=== PATIENT | male | born 1950 | race Caucasian/White ===

== ENCOUNTER 2016-07-03 17:44 | Inpatient (IN) | payer MEDICARE, OTHER ==
--- NOTE | 2016-07-03 18:33 | ED Physician Chart ---
Chief Complaint/HPI - Patient Information Date Seen:: 07/03/16 Time Seen:: 18:20 Chief Complaint:: aggressive behavior History of Present Illness:: verbally abusive to staff at SNF Allergies:: Allergies Allergy/AdvReac Type Severity Reaction Status Date / Time No Known Allergies Allergy Verified 02/27/16 19:27 Historian:: Patient Review:: Nurse's Note Reviewed, Transfer documents Reviewed Review of Systems - Review of Systems General/Constitutional: No fever, No chills Skin: No skin lesions Head: No headache Eyes: No loss of vision ENT: No earache Neck: No neck pain Cardio Vascular: No chest pain Pulmonary: No SOB GI: No nausea, No vomiting G/U: No dysuria Musculoskeletal: No bone or joint pain, No back pain Psychiatric: Prior psych history Hematopoietic: No bruising Allergic/Immuno: No urticaria Neurological: No syncope, No focal symptoms Past Medical History - Past Medical History Past Medical History: PUD/GERD, Other (bipolar; cirrhosis) Family History: None Social History: Non Smoker, No Alcohol, Other (formerly drank alcohol) Surgical History: None Psychiatricy History: Bipolar Medication: Reviewed Family Medical History - Family Member Mother History Unknown: Yes Ethnicity: Unknown Living Status: Unknown Hx Family Cancer: No Hx Family Coronary Artery Disease: No Hx Family Congestive Heart Failure: No Hx Family Hypertension: No Hx Family Stroke: No Hx Family Diabetes: No Hx Family Seizures: No Hx Family Dementia: No Hx Family AIDS: No Hx Family HIV: No Hx Family COPD: No Hx Family Hepatitis: No Hx Family Psychiatric Problems: No Hx Family Tuberculosis: No Physical Exam - Physical Examination General/Constitutional: Well-developed, well-nourished, Alert, No distress Other Gen/Cons comments:: states date is June 2015 Head: Atraumatic Eyes: Lids, conjuctiva normal, PERRL Skin: Nl inspection, No rash ENMT: External ears, nose nl Other ENMT comments:: few teeth present; has peridontal disease Neck: No nuchal rigidity Respiratory: Nl effort/Exclusion Other Respiratory comments:: 2.5/4 mid and basilar rales Cardio Vascular: RRR Other Cardio Vascular comments:: 5/6 systolic murmur GI: No tenderness/rebounding/guarding : No CVA tenderness Extremities: No tenderness or effusion Neuro/Psych: Alert/oriented, No focal deficits Misc: Normal back Labs/Radiology/EKG Results - Lab Results Results: Laboratory Results - last 24 hr 07/03/16 07/03/16 07/03/16 19:11 19:11 19:11 WBC 4.8 RBC 4.01 Hgb 12.8 Hct 37.0 L MCV 92.2 MCH 31.8 H MCHC Differential 34.5 RDW 14.7 Plt Count 94 L D MPV 8.4 Band Neutrophils % 1 Neutrophils (Manual) 51 Lymphocytes 21 Monocytes 24 H Eosinophils 3 Platelet Estimate DECREASED PLATELETS Platelet Morphology NORMAL RBC Morph Micro Appear NORMAL Sodium 135 L Potassium 3.9 Chloride 107 Carbon Dioxide 25.4 Anion Gap 6.5 L BUN 20 Creatinine 0.8 Est GFR ( Amer) > 60.0 Est GFR (Non-Af Amer) > 60.0 BUN/Creatinine Ratio 25.0 Glucose 73 Calcium 9.2 Total Bilirubin 1.0 AST 47 H ALT 37 Alkaline Phosphatase 111 H Total Protein 6.3 Albumin 2.8 L Globulin 3.5 Albumin/Globulin Ratio 0.8 L TSH 2.40 - EKG Interpretations Rhythm: NSR Acra: normal Rate: 75 Comments:: Q waves II, aVF and V1-V3 ED Septic Shock - . Is Septic Shock (SBP<90, OR Lactate>4 mmol\L) present?: No Reassessment (Disposition) - Reassessment Reassessment Condition:: Unchanged - Diagnosis Diagnosis:: bipolar; aggressive behavior; 5/6 systolic murmur - Patient Disposition Admitted to:: [facility] Admitting Medical Physician:: Андрей Villagran Admitting Psych Physician:: Samy Minor Condition at Disposition:: Stable
[2016-07-03 19:32] LABS: ALB/GLOB RATIO 0.8 (1.0-1.8); ALKALINE PHOSPHATASE 111 U/L (34-104); ANION GAP 6.5 (7.0-16.0); BUN - UREA NITROGEN 20 mg/dL (7-25); CALCIUM SERUM 9.2 mg/dL (8.6-10.3); CARBON DIOXIDE 25.4 mEq/L (21.0-31.0); CHLORIDE 107 mEq/L (98-107); CREATININE - SERUM 0.8 mg/dL (0.7-1.3); GLUCOSE 73 mg/dL (70-105); MEAN CORPUSCULAR HGB CONC 34.5 pg (28.0-36.0); POTASSIUM SERUM 3.9 mEq/L (3.5-5.1); SGOT 47 U/L (13-39); SGPT/ALT 37 U/L (7-52); SODIUM SERUM 135 mEq/L (136-145); WHITE BLOOD COUNT 4.8 Th/cmm (4.8-10.8)
[2016-07-03 19:37] LABS: HEMOGLOBIN 12.8 gm/dL (12.6-17.4); MEAN CELL VOLUME 92.2 fl (80-99); MEAN CORPUSCULAR HEMOGLOBIN 31.8 pg (27.0-31.0); MEAN PLATELET VOLUME 8.4 fl; RED BLOOD COUNT 4.01 Mil/cmm (3.80-5.80); RED CELL DISTRIBUTION WIDTH 14.7 % (11.5-20.0)
[2016-07-03 19:38] LABS: PLATELET COUNT 94 Th/cmm (150-400)
[2016-07-03 20:03] LABS: BAND NEUTROPHILE 1 % (0-10); EOSINOPHIL 3 % (0-5); NEUTROPHILS 51 % (40-80); PLATELET ESTIMATE DECREASED PLATELETS (NORMAL); PLATELET MORPHOLOGY NORMAL (NORMAL); TOTAL CELLS COUNTED 100
[2016-07-03] MEDS ORDERED: Maalox 30 mL Cup PO PRN (20:58)
[2016-07-03] MEDS ORDERED: Magnesium Hydroxide (MOM) 30 mL UDC PO PRN ×2 (20:58→21:09)
[2016-07-03] MEDS ORDERED: Hydrocodone/APAP 5mg/325mg Tab PO PRN ×3 (21:09→23:21)
[2016-07-03 21:16] VITALS: BP 142/76
[2016-07-04] MEDS: Multivitamin w/ Minerals Tab PO SCH (09:37)
--- NOTE | 2016-07-04 11:13 | Diagnostic Imaging Report ---
Portable chest x-ray HISTORY: Heart murmur The overall heart size is difficult to assess with portable technique and a poor inspiration. No acute focal pulmonary processes. No hilar or mediastinal abnormalities. IMPRESSION: 1. No acute pulmonary processes
--- NOTE | 2016-07-04 12:01 | General Progress Note ---
Subjective - Review of Systems Service Date: 07/04/16 Subjective: Let me alone Objective - Results Result Diagrams: 07/03/16 19:11 07/03/16 19:11 Recent Labs: Laboratory Last Values WBC 4.8 Th/cmm (4.8-10.8) 07/03/16 19:11 RBC 4.01 Mil/cmm (3.80-5.80) 07/03/16 19:11 Hgb 12.8 gm/dL (12.6-17.4) 07/03/16 19:11 Hct 37.0 % (39.0-49.0) L 07/03/16 19:11 MCV 92.2 fl (80-99) 07/03/16 19:11 MCH 31.8 pg (27.0-31.0) H 07/03/16 19:11 MCHC Differential 34.5 pg (28.0-36.0) 07/03/16 19:11 RDW 14.7 % (11.5-20.0) 07/03/16 19:11 Plt Count 94 Th/cmm (150-400) L D 07/03/16 19:11 MPV 8.4 fl 07/03/16 19:11 Band Neutrophils % 1 % (0-10) 07/03/16 19:11 Neutrophils (Manual) 51 % (40-80) 07/03/16 19:11 Lymphocytes 21 % (20-50) 07/03/16 19:11 Monocytes 24 % (2-10) H 07/03/16 19:11 Eosinophils 3 % (0-5) 07/03/16 19:11 Platelet Estimate DECREASED PLATELETS (NORMAL) 07/03/16 19:11 Platelet Morphology NORMAL (NORMAL) 07/03/16 19:11 RBC Morph Micro Appear NORMAL (NORMAL) 07/03/16 19:11 Sodium 135 mEq/L (136-145) L 07/03/16 19:11 Potassium 3.9 mEq/L (3.5-5.1) 07/03/16 19:11 Chloride 107 mEq/L (98-107) 07/03/16 19:11 Carbon Dioxide 25.4 mEq/L (21.0-31.0) 07/03/16 19:11 Anion Gap 6.5 (7.0-16.0) L 07/03/16 19:11 BUN 20 mg/dL (7-25) 07/03/16 19:11 Creatinine 0.8 mg/dL (0.7-1.3) 07/03/16 19:11 Est GFR ( Amer) > 60.0 ml/min 07/03/16 19:11 Est GFR (Non-Af Amer) > 60.0 ml/min 07/03/16 19:11 BUN/Creatinine Ratio 25.0 07/03/16 19:11 Glucose 73 mg/dL (70-105) 07/03/16 19:11 Calcium 9.2 mg/dL (8.6-10.3) 07/03/16 19:11 Total Bilirubin 1.0 mg/dL (0.3-1.0) 07/03/16 19:11 AST 47 U/L (13-39) H 07/03/16 19:11 ALT 37 U/L (7-52) 07/03/16 19:11 Alkaline Phosphatase 111 U/L (34-104) H 07/03/16 19:11 Total Protein 6.3 gm/dL (6.0-8.3) 07/03/16 19:11 Albumin 2.8 gm/dL (4.2-5.5) L 07/03/16 19:11 Globulin 3.5 gm/dL 07/03/16 19:11 Albumin/Globulin Ratio 0.8 (1.0-1.8) L 07/03/16 19:11 TSH 2.40 uIU/ml (0.34-5.60) 07/03/16 19:11 RPR NONREACTIVE (NONREACTIVE) 07/03/16 19:11 - Physical Exam Vitals and I&O: Vital Signs Temp 98.3 F 07/03/16 20:37 Pulse 71 07/03/16 20:37 Resp 19 07/03/16 20:37 BP 142/76 07/03/16 20:57 Pulse Ox 96 07/03/16 20:37 Active Medications: Current Medications Acetaminophen (Tylenol) 650 mg PO Q4HR PRN PRN Reason: Pain (Mild) Stop: 09/01/16 20:57 Acetaminophen/Hydrocodone Bitart ([place] 5mg/325mg) 1 tab PO Q6H PRN PRN Reason: Pain (Severe) Stop: 09/01/16 21:08 Al Hydrox/Mg Hydrox/Simethicone (Maalox) 30 ml PO Q4HR PRN PRN Reason: GI DISTRESS Stop: 09/01/16 20:57 Ascorbic Acid (Vitamin C) 500 mg PO DAILY [facility] Stop: 09/02/16 08:59 Last Admin: 07/04/16 09:36 Dose: Not Given Famotidine (Pepcid) 20 mg PO DAILY [facility] Stop: 09/02/16 08:59 Last Admin: 07/04/16 09:37 Dose: Not Given Folic Acid (Folate) 1 mg PO DAILY [facility] Stop: 09/02/16 08:59 Last Admin: 07/04/16 09:37 Dose: Not Given Ibuprofen (Motrin) 800 mg PO Q8HR PRN PRN Reason: Pain (Moderate) Stop: 09/01/16 21:08 Lactulose (Cephulac) gm PO TID [facility] Stop: 09/02/16 08:59 Lorazepam (Ativan) 0.5 mg PO Q4HR PRN; Protocol PRN Reason: Anxiety Stop: 08/02/16 20:57 Pregabalin (Lyrica) 25 mg PO BID [facility] Stop: 09/02/16 08:59 Last Admin: 07/04/16 09:37 Dose: Not Given Spironolactone (Aldactone) 100 mg PO DAILY [facility] Stop: 09/02/16 08:59 Last Admin: 07/04/16 09:40 Dose: Not Given Thiamine HCl (Vitamin B1) 100 mg PO DAILY [facility] Stop: 09/02/16 08:59 Last Admin: 07/04/16 09:36 Dose: 100 mg Zolpidem Tartrate (Ambien) 5 mg PO HS PRN PRN Reason: Insomnia Stop: 09/01/16 20:57 General: Alert, Other (Confused) HEENT: Atraumatic Neck: Supple Cardiovascular: Regular rate Lungs: Clear to auscultation Abdomen: Bowel sounds, Soft Extremities: Other (No edema) Neurological: Other (Unstable gait) Skin: Other (Warm and dry) Psych/Mental Status: Other (Confused) Assessment/Plan - Problem List Patient Problems: All Active Problems Hypertension (Acute) I10 Psychosis (Acute) F29 - Assessment Assessment: Patient is confused, in no acute distress. - Plan Plan: Ammonia level requested, will continue monitoring.
--- NOTE | 2016-07-04 13:32 | History & Physical ---
CHIEF COMPLAINT: Increase in agitation. HISTORY OF PRESENT ILLNESS: This is a case of 65-year-old white male who was sent by jail secondary to increase in agitation. The patient has history of multiple hospitalizations secondary to his mental disease. PAST MEDICAL HISTORY: The patient has past medical history of aplastic encephalopathy, liver cirrhosis, bipolar, GERD, hypertension, general muscle weakness and major depressive disorder. SOCIAL HISTORY: The patient is a permanent resident of a jail. FAMILY HISTORY: Unremarkable. MEDICATIONS: Reviewed. ALLERGIES: No known allergies. REVIEW OF SYSTEMS: Information was not obtained secondary to the patient's mental condition. PHYSICAL EXAMINATION: GENERAL: Does reveal a fairly nourished and developed white male, awake, alert, confused, not oriented. HEENT: Head is normocephalic and atraumatic. Eyes: Pupils reactive to light. Nose: No evidence of nasal obstruction. Ears: No evidence of any discharge. Mouth: Fairly ____. LUNGS: Bilateral air entry. No wheezing, no crackles. HEART: Regular and rhythmic. ABDOMEN: Soft, nontender, bowel sound present. EXTREMITIES: No edema. NEUROLOGICAL: The patient is awake, alert, confused, not oriented. Neurological examination was not completed secondary to the patient's mental condition. IMPRESSION: 1. Increase in agitation. 2. Bipolar. 3. Liver cirrhosis. 4. Hypertension. 5. General muscle weakness. PLAN: 1. The patient will be admitted in the Geropsych Unit. 2. The patient will be following with Psychiatry. 3. Continue jail medications. 4. CBC and CMP at a.m. [facility]# [id number]
[2016-07-04] MEDS: Lactulose 10 Gm/15 mL 30mL UDC PO SCH ×2 (14:38→20:35)
--- NOTE | 2016-07-05 08:01 | Psychosocial Evaluation ---
IDENTIFYING DATA: The patient is a 65-year-old male resident of [facility] in [place]. Information obtained by interviewing the patient as well as reviewing the admission papers. JUSTIFICATION OF HOSPITALIZATION: The patient is admitted here on a voluntary basis in view of his acute agitation. CHIEF COMPLAINT: "I don't need to tell. Go and ask the people that sent me in here. " HISTORY OF PRESENT ILLNESS: This is one of multiple psychiatric hospitalizations for this patient who is known to us from the previous psychiatric hospitalization and treatments. The patient is reported to have been getting verbally aggressive and has been having difficult time to cope with the stress. The patient has been anxious and then having lot of angry outburst. The patient has been sent over here for further stabilization. Chart is reviewed. The patient is interviewed. During the interview, the patient is not cooperative and has been getting easily frustrated. Review of the chart indicated that the patient has been on Lyrica prior to being hospitalized and patient's compliance with the medication is questionable. The patient is stating that he does not need any medications. PAST PSYCHIATRIC HISTORY: Please refer to the above. PAST MEDICAL HISTORY: The patient ____. PAST PSYCHIATRIC HISTORY: Significant for patient having bipolar disorder. MEDICAL HISTORY: Physical examination is requested and done by Dr. Villagran. Medical history significant for essential hypertension, history of cerebral aneurysm unruptured and the patient is also noted to have anemia. MENTAL STATUS EXAMINATION: The patient is a 65-year-old, looking older than his stated age, superficially cooperative. Eye contact is poor. Mood is noted to be irritable. Affect is constricted. Insight and judgment are very much impaired. Impulse control seems to be poor. Coping skills are also noted to be poor. The patient has been getting easily irritable and upset. The patient is screaming and yelling, verbally abusive towards the staff. The patient at this time has been maintained on Ativan on a p.r.n. basis. Even then patient is getting easily frustrated. The patient has paranoia, but denies any command hallucinations, mood swings are noted to be a problem. The patient is angry and upset. The patient's short term memory is noted to be poor. [facility] memory seems to be fair. DIAGNOSTIC IMPRESSION: AXIS I: Bipolar disorder, not otherwise specified. AXIS II: None. AXIS III: As per Dr. Villagran. IMMEDIATE TREATMENT PLAN: The patient is going to be observed on inpatient unit, provided with supportive psychotherapy. The patient is going to be encouraged to participate in the groups and verbalize the concerns. When stabilized, the patient is going to be discharged to self to be followed up on an outpatient basis. ESTIMATED LENGTH OF STAY: 5-7 days. DISCHARGE CRITERIA: When he no longer a threat to self or others and be able to cope up with the stress. JOB# [id number]
[2016-07-05] MEDS: Multivitamin w/ Minerals Tab PO SCH (09:08)
[2016-07-05] MEDS: Lactulose 10 Gm/15 mL 30mL UDC PO SCH ×3 (09:08→20:48)
--- NOTE | 2016-07-05 17:13 | General Progress Note ---
Subjective - Review of Systems Service Date: 07/05/16 Subjective: Let me alone Objective - Results Result Diagrams: 07/03/16 19:11 07/03/16 19:11 Recent Labs: Laboratory Last Values WBC 4.8 Th/cmm (4.8-10.8) 07/03/16 19:11 RBC 4.01 Mil/cmm (3.80-5.80) 07/03/16 19:11 Hgb 12.8 gm/dL (12.6-17.4) 07/03/16 19:11 Hct 37.0 % (39.0-49.0) L 07/03/16 19:11 MCV 92.2 fl (80-99) 07/03/16 19:11 MCH 31.8 pg (27.0-31.0) H 07/03/16 19:11 MCHC Differential 34.5 pg (28.0-36.0) 07/03/16 19:11 RDW 14.7 % (11.5-20.0) 07/03/16 19:11 Plt Count 94 Th/cmm (150-400) L D 07/03/16 19:11 MPV 8.4 fl 07/03/16 19:11 Band Neutrophils % 1 % (0-10) 07/03/16 19:11 Neutrophils (Manual) 51 % (40-80) 07/03/16 19:11 Lymphocytes 21 % (20-50) 07/03/16 19:11 Monocytes 24 % (2-10) H 07/03/16 19:11 Eosinophils 3 % (0-5) 07/03/16 19:11 Platelet Estimate DECREASED PLATELETS (NORMAL) 07/03/16 19:11 Platelet Morphology NORMAL (NORMAL) 07/03/16 19:11 RBC Morph Micro Appear NORMAL (NORMAL) 07/03/16 19:11 Sodium 135 mEq/L (136-145) L 07/03/16 19:11 Potassium 3.9 mEq/L (3.5-5.1) 07/03/16 19:11 Chloride 107 mEq/L (98-107) 07/03/16 19:11 Carbon Dioxide 25.4 mEq/L (21.0-31.0) 07/03/16 19:11 Anion Gap 6.5 (7.0-16.0) L 07/03/16 19:11 BUN 20 mg/dL (7-25) 07/03/16 19:11 Creatinine 0.8 mg/dL (0.7-1.3) 07/03/16 19:11 Est GFR ( Amer) > 60.0 ml/min 07/03/16 19:11 Est GFR (Non-Af Amer) > 60.0 ml/min 07/03/16 19:11 BUN/Creatinine Ratio 25.0 07/03/16 19:11 Glucose 73 mg/dL (70-105) 07/03/16 19:11 Calcium 9.2 mg/dL (8.6-10.3) 07/03/16 19:11 Total Bilirubin 1.0 mg/dL (0.3-1.0) 07/03/16 19:11 AST 47 U/L (13-39) H 07/03/16 19:11 ALT 37 U/L (7-52) 07/03/16 19:11 Alkaline Phosphatase 111 U/L (34-104) H 07/03/16 19:11 Total Protein 6.3 gm/dL (6.0-8.3) 07/03/16 19:11 Albumin 2.8 gm/dL (4.2-5.5) L 07/03/16 19:11 Globulin 3.5 gm/dL 07/03/16 19:11 Albumin/Globulin Ratio 0.8 (1.0-1.8) L 07/03/16 19:11 TSH 2.40 uIU/ml (0.34-5.60) 07/03/16 19:11 RPR NONREACTIVE (NONREACTIVE) 07/03/16 19:11 - Physical Exam Vitals and I&O: Vital Signs Temp 98.3 F 07/03/16 20:37 Pulse 71 07/03/16 20:37 Resp 19 07/03/16 20:37 BP 142/76 07/03/16 20:57 Pulse Ox 96 07/03/16 20:37 Intake & Output 07/04/16 07/05/16 07/05/16 18:59 06:59 18:59 Intake Total 1000 Balance 1000 Intake: Oral 1000 Other: # Voids 3 2 # Bowel Movements 1 Active Medications: Current Medications Acetaminophen (Tylenol) 650 mg PO Q4HR PRN PRN Reason: Pain (Mild) Stop: 09/01/16 20:57 Acetaminophen/Hydrocodone Bitart ([place] 5mg/325mg) 1 tab PO Q6H PRN PRN Reason: Pain (Severe) Stop: 09/01/16 21:08 Al Hydrox/Mg Hydrox/Simethicone (Maalox) 30 ml PO Q4HR PRN PRN Reason: GI DISTRESS Stop: 09/01/16 20:57 Ascorbic Acid (Vitamin C) 500 mg PO DAILY [facility] Stop: 09/02/16 08:59 Last Admin: 07/05/16 09:08 Dose: Not Given Famotidine (Pepcid) 20 mg PO DAILY [facility] Stop: 09/02/16 08:59 Last Admin: 07/05/16 09:08 Dose: Not Given Folic Acid (Folate) 1 mg PO DAILY [facility] Stop: 09/02/16 08:59 Last Admin: 07/05/16 09:08 Dose: Not Given Ibuprofen (Motrin) 800 mg PO Q8HR PRN PRN Reason: Pain (Moderate) Stop: 09/01/16 21:08 Lactulose (Cephulac) 20 gm PO TID [facility] Stop: 09/02/16 08:59 Last Admin: 07/05/16 13:50 Dose: Not Given Lorazepam (Ativan) 0.5 mg PO Q4HR PRN; Protocol PRN Reason: Anxiety Stop: 08/02/16 20:57 Pregabalin (Lyrica) 25 mg PO BID [facility] Stop: 09/02/16 08:59 Last Admin: 07/05/16 16:44 Dose: Not Given Spironolactone (Aldactone) 100 mg PO DAILY [facility] Stop: 09/02/16 08:59 Last Admin: 07/05/16 09:08 Dose: Not Given Thiamine HCl (Vitamin B1) 100 mg PO DAILY [facility] Stop: 09/02/16 08:59 Last Admin: 07/05/16 09:08 Dose: Not Given Zolpidem Tartrate (Ambien) 5 mg PO HS PRN PRN Reason: Insomnia Stop: 09/01/16 20:57 General: Alert, Other (Confused) HEENT: Atraumatic Neck: Supple Cardiovascular: Regular rate Lungs: Clear to auscultation Abdomen: Bowel sounds, Soft Extremities: Other (No edema) Neurological: Normal gait Skin: Other (Warm and dry) Psych/Mental Status: Other (Confused) Assessment/Plan - Problem List Patient Problems: All Active Problems Hypertension (Acute) I10 Psychosis (Acute) F29 - Assessment Assessment: Patient is confused, in no acute distress. - Plan Plan: Ammonia level requested, will continue monitoring.
--- NOTE | 2016-07-06 03:15 | Progress Notes ---
PSYCHIATRIC PROGRESS NOTE TIME PATIENT SEEN: 10:30 a.m. SUBJECTIVE: Staff was spoken to. The patient is interviewed. Mood is noted to be irritable. Affect is constricted. The patient continues to be irritable and angry. Insight and judgment are noted to be very much impaired. The patient is getting easily agitated. The patient has no insight into his illness. Coping skills are noted to be very poor. The patient has been stating that everything is written over there, he does not need to tell me anything. The reason for him to be in here, the patient has no insight into his illness. ASSESSMENT: The patient is still getting easily agitated. PLAN: To continue the patient with the current medications. I encouraged the patient to verbalize the concerns rather than to act out. JOB# [id number]
[2016-07-06] MEDS: Multivitamin w/ Minerals Tab PO SCH (09:38)
[2016-07-06] MEDS: Lactulose 10 Gm/15 mL 30mL UDC PO SCH ×3 (09:38→21:15)
--- NOTE | 2016-07-06 11:36 | General Progress Note ---
Subjective - Review of Systems Service Date: 07/06/16 Subjective: Let me alone Objective - Results Result Diagrams: 07/03/16 19:11 07/03/16 19:11 Recent Labs: Laboratory Last Values WBC 4.8 Th/cmm (4.8-10.8) 07/03/16 19:11 RBC 4.01 Mil/cmm (3.80-5.80) 07/03/16 19:11 Hgb 12.8 gm/dL (12.6-17.4) 07/03/16 19:11 Hct 37.0 % (39.0-49.0) L 07/03/16 19:11 MCV 92.2 fl (80-99) 07/03/16 19:11 MCH 31.8 pg (27.0-31.0) H 07/03/16 19:11 MCHC Differential 34.5 pg (28.0-36.0) 07/03/16 19:11 RDW 14.7 % (11.5-20.0) 07/03/16 19:11 Plt Count 94 Th/cmm (150-400) L D 07/03/16 19:11 MPV 8.4 fl 07/03/16 19:11 Band Neutrophils % 1 % (0-10) 07/03/16 19:11 Neutrophils (Manual) 51 % (40-80) 07/03/16 19:11 Lymphocytes 21 % (20-50) 07/03/16 19:11 Monocytes 24 % (2-10) H 07/03/16 19:11 Eosinophils 3 % (0-5) 07/03/16 19:11 Platelet Estimate DECREASED PLATELETS (NORMAL) 07/03/16 19:11 Platelet Morphology NORMAL (NORMAL) 07/03/16 19:11 RBC Morph Micro Appear NORMAL (NORMAL) 07/03/16 19:11 Sodium 135 mEq/L (136-145) L 07/03/16 19:11 Potassium 3.9 mEq/L (3.5-5.1) 07/03/16 19:11 Chloride 107 mEq/L (98-107) 07/03/16 19:11 Carbon Dioxide 25.4 mEq/L (21.0-31.0) 07/03/16 19:11 Anion Gap 6.5 (7.0-16.0) L 07/03/16 19:11 BUN 20 mg/dL (7-25) 07/03/16 19:11 Creatinine 0.8 mg/dL (0.7-1.3) 07/03/16 19:11 Est GFR ( Amer) > 60.0 ml/min 07/03/16 19:11 Est GFR (Non-Af Amer) > 60.0 ml/min 07/03/16 19:11 BUN/Creatinine Ratio 25.0 07/03/16 19:11 Glucose 73 mg/dL (70-105) 07/03/16 19:11 Calcium 9.2 mg/dL (8.6-10.3) 07/03/16 19:11 Total Bilirubin 1.0 mg/dL (0.3-1.0) 07/03/16 19:11 AST 47 U/L (13-39) H 07/03/16 19:11 ALT 37 U/L (7-52) 07/03/16 19:11 Alkaline Phosphatase 111 U/L (34-104) H 07/03/16 19:11 Total Protein 6.3 gm/dL (6.0-8.3) 07/03/16 19:11 Albumin 2.8 gm/dL (4.2-5.5) L 07/03/16 19:11 Globulin 3.5 gm/dL 07/03/16 19:11 Albumin/Globulin Ratio 0.8 (1.0-1.8) L 07/03/16 19:11 TSH 2.40 uIU/ml (0.34-5.60) 07/03/16 19:11 RPR NONREACTIVE (NONREACTIVE) 07/03/16 19:11 - Physical Exam Vitals and I&O: Vital Signs Temp 98 F 07/06/16 06:57 Pulse 79 07/06/16 09:38 Resp 20 07/06/16 06:57 BP 123/78 07/06/16 09:38 Pulse Ox 96 07/06/16 06:57 Intake & Output 07/05/16 07/06/16 07/06/16 18:59 06:59 18:59 Intake Total 800 240 Balance 800 240 Intake: Oral 800 240 Other: # Voids 2 4 # Bowel Movements 1 0 Stool Characteristics Soft Formed Active Medications: Current Medications Acetaminophen (Tylenol) 650 mg PO Q4HR PRN PRN Reason: Pain (Mild) Stop: 09/01/16 20:57 Acetaminophen/Hydrocodone Bitart ([place] 5mg/325mg) 1 tab PO Q6H PRN PRN Reason: Pain (Severe) Stop: 09/01/16 21:08 Al Hydrox/Mg Hydrox/Simethicone (Maalox) 30 ml PO Q4HR PRN PRN Reason: GI DISTRESS Stop: 09/01/16 20:57 Ascorbic Acid (Vitamin C) 500 mg PO DAILY [facility] Stop: 09/02/16 08:59 Last Admin: 07/06/16 09:38 Dose: Not Given Famotidine (Pepcid) 20 mg PO DAILY [facility] Stop: 09/02/16 08:59 Last Admin: 07/06/16 09:38 Dose: Not Given Folic Acid (Folate) 1 mg PO DAILY [facility] Stop: 09/02/16 08:59 Last Admin: 07/06/16 09:38 Dose: Not Given Haloperidol (Haldol) 1 mg PO BID PRN; Protocol PRN Reason: Agitation Stop: 09/04/16 16:59 Ibuprofen (Motrin) 800 mg PO Q8HR PRN PRN Reason: Pain (Moderate) Stop: 09/01/16 21:08 Lactulose (Cephulac) 20 gm PO TID [facility] Stop: 09/02/16 08:59 Last Admin: 07/06/16 09:38 Dose: Not Given Lorazepam (Ativan) 0.5 mg PO Q4HR PRN; Protocol PRN Reason: Anxiety Stop: 08/02/16 20:57 Pregabalin (Lyrica) 25 mg PO BID [facility] Stop: 09/02/16 08:59 Last Admin: 07/06/16 09:38 Dose: Not Given Spironolactone (Aldactone) 100 mg PO DAILY [facility] Stop: 09/02/16 08:59 Last Admin: 07/06/16 09:38 Dose: Not Given Thiamine HCl (Vitamin B1) 100 mg PO DAILY [facility] Stop: 09/02/16 08:59 Last Admin: 07/06/16 09:39 Dose: Not Given Zolpidem Tartrate (Ambien) 5 mg PO HS PRN PRN Reason: Insomnia Stop: 09/01/16 20:57 General: Alert, Other (Confused) HEENT: Atraumatic Neck: Supple Cardiovascular: Regular rate Lungs: Clear to auscultation Abdomen: Bowel sounds, Soft Extremities: Other (No edema) Neurological: Other (Unstable gait) Skin: Other (Warm and dry) Psych/Mental Status: Other (Confused) Assessment/Plan - Problem List Patient Problems: All Active Problems Hypertension (Acute) I10 Psychosis (Acute) F29 - Assessment Assessment: Patient is confused, in no acute distress. - Plan Plan: Ammonia level requested, will continue monitoring.
--- NOTE | 2016-07-06 23:52 | Progress Notes ---
TIME PATIENT SEEN: 10:15 a.m. SUBJECTIVE: Staff was spoken to. The patient is interviewed. Mood is noted to be irritable. Affect is constricted. Insight and judgment are noted to be impaired. Impulse control seems the patient is verbally abusive towards the staff members. The patient has no insight into his illness. Coping skills are noted to be extremely poor. The patient is going to be placed on the Haldol 1 mg b.i.d. on a p.r.n. basis and the patient is going to be encouraged to participate in the groups and verbalize the concerns. The patient has no insight into his illness at this time. ASSESSMENT: The patient is still psychotic and impulsive. PLAN: To continue the patient with the supportive therapy and encourage the patient to verbalize the concerns rather than to act out. Haldol is going to be given for agitation and psychosis. Assessment is the patient is still impulsive and agitated. Plan to continue the patient with the supportive therapy and add Haldol to the above regimen of the Ativan and follow the patient up. JOB# [id number]
[2016-07-07] MEDS: Multivitamin w/ Minerals Tab PO SCH (10:12)
[2016-07-07] MEDS: Lactulose 10 Gm/15 mL 30mL UDC PO SCH ×4 (10:16→20:42)
--- NOTE | 2016-07-07 12:26 | General Progress Note ---
Subjective - Review of Systems Service Date: 07/07/16 Subjective: Let me alone Objective - Results Result Diagrams: 07/03/16 19:11 07/03/16 19:11 Recent Labs: Laboratory Last Values WBC 4.8 Th/cmm (4.8-10.8) 07/03/16 19:11 RBC 4.01 Mil/cmm (3.80-5.80) 07/03/16 19:11 Hgb 12.8 gm/dL (12.6-17.4) 07/03/16 19:11 Hct 37.0 % (39.0-49.0) L 07/03/16 19:11 MCV 92.2 fl (80-99) 07/03/16 19:11 MCH 31.8 pg (27.0-31.0) H 07/03/16 19:11 MCHC Differential 34.5 pg (28.0-36.0) 07/03/16 19:11 RDW 14.7 % (11.5-20.0) 07/03/16 19:11 Plt Count 94 Th/cmm (150-400) L D 07/03/16 19:11 MPV 8.4 fl 07/03/16 19:11 Band Neutrophils % 1 % (0-10) 07/03/16 19:11 Neutrophils (Manual) 51 % (40-80) 07/03/16 19:11 Lymphocytes 21 % (20-50) 07/03/16 19:11 Monocytes 24 % (2-10) H 07/03/16 19:11 Eosinophils 3 % (0-5) 07/03/16 19:11 Platelet Estimate DECREASED PLATELETS (NORMAL) 07/03/16 19:11 Platelet Morphology NORMAL (NORMAL) 07/03/16 19:11 RBC Morph Micro Appear NORMAL (NORMAL) 07/03/16 19:11 Sodium 135 mEq/L (136-145) L 07/03/16 19:11 Potassium 3.9 mEq/L (3.5-5.1) 07/03/16 19:11 Chloride 107 mEq/L (98-107) 07/03/16 19:11 Carbon Dioxide 25.4 mEq/L (21.0-31.0) 07/03/16 19:11 Anion Gap 6.5 (7.0-16.0) L 07/03/16 19:11 BUN 20 mg/dL (7-25) 07/03/16 19:11 Creatinine 0.8 mg/dL (0.7-1.3) 07/03/16 19:11 Est GFR ( Amer) > 60.0 ml/min 07/03/16 19:11 Est GFR (Non-Af Amer) > 60.0 ml/min 07/03/16 19:11 BUN/Creatinine Ratio 25.0 07/03/16 19:11 Glucose 73 mg/dL (70-105) 07/03/16 19:11 Calcium 9.2 mg/dL (8.6-10.3) 07/03/16 19:11 Total Bilirubin 1.0 mg/dL (0.3-1.0) 07/03/16 19:11 AST 47 U/L (13-39) H 07/03/16 19:11 ALT 37 U/L (7-52) 07/03/16 19:11 Alkaline Phosphatase 111 U/L (34-104) H 07/03/16 19:11 Total Protein 6.3 gm/dL (6.0-8.3) 07/03/16 19:11 Albumin 2.8 gm/dL (4.2-5.5) L 07/03/16 19:11 Globulin 3.5 gm/dL 07/03/16 19:11 Albumin/Globulin Ratio 0.8 (1.0-1.8) L 07/03/16 19:11 TSH 2.40 uIU/ml (0.34-5.60) 07/03/16 19:11 RPR NONREACTIVE (NONREACTIVE) 07/03/16 19:11 - Physical Exam Vitals and I&O: Vital Signs Temp 0 F 07/07/16 06:47 Pulse 80 07/07/16 10:12 Resp 22 07/07/16 08:00 BP 106/78 07/07/16 10:12 Pulse Ox 98 07/06/16 20:31 Intake & Output 07/06/16 07/07/16 07/07/16 18:59 06:59 18:59 Intake Total 1200 240 Balance 1200 240 Intake: Oral 1200 240 Other: # Voids 4 3 # Bowel Movements 1 0 Stool Characteristics Soft Formed Formed Active Medications: Current Medications Acetaminophen (Tylenol) 650 mg PO Q4HR PRN PRN Reason: Pain (Mild) Stop: 09/01/16 20:57 Acetaminophen/Hydrocodone Bitart ([place] 5mg/325mg) 1 tab PO Q6H PRN PRN Reason: Pain (Severe) Stop: 09/01/16 21:08 Al Hydrox/Mg Hydrox/Simethicone (Maalox) 30 ml PO Q4HR PRN PRN Reason: GI DISTRESS Stop: 09/01/16 20:57 Ascorbic Acid (Vitamin C) 500 mg PO DAILY [facility] Stop: 09/02/16 08:59 Last Admin: 07/07/16 10:10 Dose: 500 mg Famotidine (Pepcid) 20 mg PO DAILY [facility] Stop: 09/02/16 08:59 Last Admin: 07/07/16 10:09 Dose: 20 mg Folic Acid (Folate) 1 mg PO DAILY [facility] Stop: 09/02/16 08:59 Last Admin: 07/07/16 10:10 Dose: 1 mg Haloperidol (Haldol) 1 mg PO BID PRN; Protocol PRN Reason: Agitation Stop: 09/04/16 16:59 Haloperidol (Haldol) 1 mg PO BID [facility] PRN Reason: Protocol Stop: 09/05/16 08:59 Last Admin: 07/07/16 10:11 Dose: 1 mg Ibuprofen (Motrin) 800 mg PO Q8HR PRN PRN Reason: Pain (Moderate) Stop: 09/01/16 21:08 Lactulose (Cephulac) 20 gm PO TID [facility] Stop: 09/02/16 08:59 Last Admin: 07/07/16 10:16 Dose: Not Given Lorazepam (Ativan) 0.5 mg PO Q4HR PRN; Protocol PRN Reason: Anxiety Stop: 08/02/16 20:57 Pregabalin (Lyrica) 25 mg PO BID [facility] Stop: 09/02/16 08:59 Last Admin: 07/07/16 10:10 Dose: 25 mg Spironolactone (Aldactone) 100 mg PO DAILY [facility] Stop: 09/02/16 08:59 Last Admin: 07/07/16 10:12 Dose: Not Given Thiamine HCl (Vitamin B1) 100 mg PO DAILY [facility] Stop: 09/02/16 08:59 Last Admin: 07/07/16 10:10 Dose: 100 mg Zolpidem Tartrate (Ambien) 5 mg PO HS PRN PRN Reason: Insomnia Stop: 09/01/16 20:57 General: Alert, Other (Confused) HEENT: Atraumatic Neck: Supple Cardiovascular: Regular rate Lungs: Clear to auscultation Abdomen: Bowel sounds, Soft Extremities: Other (No edema) Neurological: Other (Non ambulatory) Skin: Other (Warm and dry) Psych/Mental Status: Other (Confused) Assessment/Plan - Problem List Patient Problems: All Active Problems Hypertension (Acute) I10 Psychosis (Acute) F29 - Assessment Assessment: Patient is confused, in no acute distress. - Plan Plan: Ammonia level requested, will continue monitoring.
[2016-07-07 15:48] LABS: HEMATOCRIT 37.9 % (39.0-49.0); HEMOGLOBIN 13.1 gm/dL (12.6-17.4); MEAN CELL VOLUME 92.8 fl (80-99); MEAN CORPUSCULAR HEMOGLOBIN 32.1 pg (27.0-31.0); MEAN CORPUSCULAR HGB CONC 34.6 pg (28.0-36.0); PLATELET COUNT 81 Th/cmm (150-400); RED BLOOD COUNT 4.08 Mil/cmm (3.80-5.80); RED CELL DISTRIBUTION WIDTH 14.4 % (11.5-20.0); WHITE BLOOD COUNT 4.9 Th/cmm (4.8-10.8)
[2016-07-07 15:52] LABS: ALB/GLOB RATIO 0.8 (1.0-1.8); ALKALINE PHOSPHATASE 78 U/L (34-104); ANION GAP 5.7 (7.0-16.0); BILIRUBIN,TOTAL 1.3 mg/dL (0.3-1.0); BUN - UREA NITROGEN 18 mg/dL (7-25); BUN/CREATININE RATIO 25.7; CALCIUM SERUM 9.5 mg/dL (8.6-10.3); CARBON DIOXIDE 24.3 mEq/L (21.0-31.0); CHLORIDE 111 mEq/L (98-107); CREATININE - SERUM 0.7 mg/dL (0.7-1.3); GLUCOSE 127 mg/dL (70-105); SGOT 48 U/L (13-39); SGPT/ALT 39 U/L (7-52); SODIUM SERUM 137 mEq/L (136-145)
[2016-07-07 15:58] LABS: TOTAL CELLS COUNTED 100
[2016-07-07 16:08] LABS: BAND NEUTROPHILE 0 % (0-10); BASOPHIL 0 % (0-3); EOSINOPHIL 5 % (0-5); NEUTROPHILS 61 % (40-80); PLATELET ESTIMATE DECREASED PLATELETS (NORMAL); PLATELET MORPHOLOGY NORMAL (NORMAL)
--- NOTE | 2016-07-08 01:03 | Progress Notes ---
PSYCHIATRIC PROGRESS NOTE TIME PATIENT SEEN: 8:15 a.m. SUBJECTIVE: Staff was spoken to. The patient is interviewed. Mood is noted to be irritable. Affect is constricted. Coping skills are noted to be very poor. The patient is screaming and yelling. The patient is extremely paranoid and is not able to contract for safety. No side effects to the medications are noted at this time. ASSESSMENT: The patient is still impulsive. PLAN: To continue the patient with the current medications and add the Haldol 1 mg b.i.d. for his psychosis and agitation and aggressive behavior and follow the patient up. JOB# [id number]
[2016-07-08] MEDS: Lactulose 10 Gm/15 mL 30mL UDC PO SCH ×3 (10:29→20:47)
[2016-07-08] MEDS: Multivitamin w/ Minerals Tab PO SCH (10:32)
[2016-07-08] MEDS ORDERED: Haloperidol Lactate 5 mg/mL 1mL Vial IM ONE (16:14)
[2016-07-08] MEDS ORDERED: Haloperidol Lactate 5 mg/mL 1mL Vial ONE (16:21)
--- NOTE | 2016-07-08 22:28 | Progress Notes ---
PSYCHIATRIC PROGRESS NOTE TIME PATIENT SEEN: 7:15 a.m. SUBJECTIVE: Staff was spoken to. The patient is interviewed. Mood is noted to be irritable. Affect is constricted. The patient continues to be irritable and angry. Affect is constricted. The patient has been having difficult time to cope with the stress. The patient is argumentative. The patient has no insight into his illness. ASSESSMENT: The patient is still impulsive. PLAN: To continue the patient with Haldol and follow up. [facility]# [id number]
[2016-07-09] MEDS: Lactulose 10 Gm/15 mL 30mL UDC PO SCH ×3 (11:57→21:08)
[2016-07-09] MEDS: Multivitamin w/ Minerals Tab PO SCH (11:58)
--- NOTE | 2016-07-09 14:02 | General Progress Note ---
Subjective - Review of Systems Service Date: 07/09/16 Subjective: I want to go home Objective - Results Result Diagrams: 07/07/16 15:15 07/07/16 15:15 Recent Labs: Laboratory Last Values WBC 4.9 Th/cmm (4.8-10.8) 07/07/16 15:15 RBC 4.08 Mil/cmm (3.80-5.80) 07/07/16 15:15 Hgb 13.1 gm/dL (12.6-17.4) 07/07/16 15:15 Hct 37.9 % (39.0-49.0) L 07/07/16 15:15 MCV 92.8 fl (80-99) 07/07/16 15:15 MCH 32.1 pg (27.0-31.0) H 07/07/16 15:15 MCHC Differential 34.6 pg (28.0-36.0) 07/07/16 15:15 RDW 14.4 % (11.5-20.0) 07/07/16 15:15 Plt Count 81 Th/cmm (150-400) L 07/07/16 15:15 MPV 8.0 fl 07/07/16 15:15 Band Neutrophils % 0 % (0-10) 07/07/16 15:15 Neutrophils (Manual) 61 % (40-80) 07/07/16 15:15 Lymphocytes 24 % (20-50) 07/07/16 15:15 Monocytes 10 % (2-10) 07/07/16 15:15 Eosinophils 5 % (0-5) 07/07/16 15:15 Basophils 0 % (0-3) 07/07/16 15:15 Platelet Estimate DECREASED PLATELETS (NORMAL) 07/07/16 15:15 Platelet Morphology NORMAL (NORMAL) 07/07/16 15:15 RBC Morph Micro Appear NORMAL (NORMAL) 07/07/16 15:15 Sodium 137 mEq/L (136-145) 07/07/16 15:15 Potassium 4.0 mEq/L (3.5-5.1) 07/07/16 15:15 Chloride 111 mEq/L (98-107) H 07/07/16 15:15 Carbon Dioxide 24.3 mEq/L (21.0-31.0) 07/07/16 15:15 Anion Gap 5.7 (7.0-16.0) L 07/07/16 15:15 BUN 18 mg/dL (7-25) 07/07/16 15:15 Creatinine 0.7 mg/dL (0.7-1.3) 07/07/16 15:15 Est GFR ( Amer) > 60.0 ml/min 07/07/16 15:15 Est GFR (Non-Af Amer) > 60.0 ml/min 07/07/16 15:15 BUN/Creatinine Ratio 25.7 07/07/16 15:15 Glucose 127 mg/dL (70-105) H 07/07/16 15:15 Calcium 9.5 mg/dL (8.6-10.3) 07/07/16 15:15 Total Bilirubin 1.3 mg/dL (0.3-1.0) H 07/07/16 15:15 AST 48 U/L (13-39) H 07/07/16 15:15 ALT 39 U/L (7-52) 07/07/16 15:15 Alkaline Phosphatase 78 U/L (34-104) 07/07/16 15:15 Ammonia 209 umol/L (16-53) H 07/07/16 15:15 Total Protein 5.9 gm/dL (6.0-8.3) L 07/07/16 15:15 Albumin 2.6 gm/dL (4.2-5.5) L 07/07/16 15:15 Globulin 3.3 gm/dL 07/07/16 15:15 Albumin/Globulin Ratio 0.8 (1.0-1.8) L 07/07/16 15:15 TSH 2.40 uIU/ml (0.34-5.60) 07/03/16 19:11 RPR NONREACTIVE (NONREACTIVE) 07/03/16 19:11 - Physical Exam Vitals and I&O: Vital Signs Temp 0 F 07/09/16 06:43 Pulse 88 07/09/16 12:05 Resp 20 07/08/16 14:00 BP 100/54 07/09/16 12:05 Pulse Ox 95 07/08/16 14:00 Intake & Output 07/08/16 07/09/16 07/09/16 18:59 06:59 18:59 Intake Total 800 120 Balance 800 120 Intake: Oral 800 120 Other: # Voids 4 3 # Bowel Movements 2 0 Active Medications: Current Medications Acetaminophen (Tylenol) 650 mg PO Q4HR PRN PRN Reason: Pain (Mild) Stop: 09/01/16 20:57 Acetaminophen/Hydrocodone Bitart ([place] 5mg/325mg) 1 tab PO Q6H PRN PRN Reason: Pain (Severe) Stop: 09/01/16 21:08 Al Hydrox/Mg Hydrox/Simethicone (Maalox) 30 ml PO Q4HR PRN PRN Reason: GI DISTRESS Stop: 09/01/16 20:57 Ascorbic Acid (Vitamin C) 500 mg PO DAILY [facility] Stop: 09/02/16 08:59 Last Admin: 07/09/16 11:57 Dose: 500 mg Famotidine (Pepcid) 20 mg PO DAILY [facility] Stop: 09/02/16 08:59 Last Admin: 07/09/16 11:58 Dose: 20 mg Folic Acid (Folate) 1 mg PO DAILY [facility] Stop: 09/02/16 08:59 Last Admin: 07/09/16 11:58 Dose: 1 mg Haloperidol (Haldol) 1 mg PO BID PRN; Protocol PRN Reason: Agitation Stop: 09/04/16 16:59 Haloperidol (Haldol) 1 mg PO BID [facility] PRN Reason: Protocol Stop: 09/05/16 08:59 Last Admin: 07/09/16 11:58 Dose: 1 mg Lactulose (Cephulac) 60 gm PO TID [facility] Stop: 09/02/16 16:59 Last Admin: 07/09/16 11:57 Dose: Not Given Lorazepam (Ativan) 0.5 mg PO Q4HR PRN; Protocol PRN Reason: Anxiety Stop: 08/02/16 20:57 Last Admin: 07/09/16 12:00 Dose: 0.5 mg Rifaximin (Xifaxan) 400 mg PO BID [facility] Stop: 09/05/16 16:59 Last Admin: 07/09/16 12:03 Dose: 400 mg Spironolactone (Aldactone) 100 mg PO DAILY [facility] Stop: 09/02/16 08:59 Last Admin: 07/09/16 12:05 Dose: Not Given Thiamine HCl (Vitamin B1) 100 mg PO DAILY [facility] Stop: 09/02/16 08:59 Last Admin: 07/09/16 11:57 Dose: 100 mg Zolpidem Tartrate (Ambien) 5 mg PO HS PRN PRN Reason: Insomnia Stop: 09/01/16 20:57 General: Alert, Other (confused) HEENT: Atraumatic Neck: Supple Cardiovascular: Regular rate Lungs: Clear to auscultation Abdomen: Bowel sounds, Soft Extremities: Other (No edema) Neurological: Other (Unstable gait) Skin: Other (Warm and dry) Psych/Mental Status: Other (Confused) Assessment/Plan - Problem List Patient Problems: All Active Problems Hypertension (Acute) I10 Psychosis (Acute) F29 - Assessment Assessment: Patient is confused, in no acute distress. Last eng patient had several bowel movements. - Plan Plan: Ammonia level requested, will continue monitoring.
--- NOTE | 2016-07-10 06:29 | Progress Notes ---
TIME PATIENT SEEN: 4:45 p.m. SUBJECTIVE: Staff was spoken to. The patient is interviewed. Mood is noted to be irritable. Affect is constricted. The patient is very ____, he needs to be out of this place. The patient's coping skills are noted to be poor. The patient has no place to return to. preconstruction manager has been trying to look for placement for this patient. ASSESSMENT: The patient is still grossly psychotic. PLAN: To continue with the low dose of the Haldol and follow up. JOB# [id number]
[2016-07-10] MEDS: Lactulose 10 Gm/15 mL 30mL UDC PO SCH ×3 (09:06→20:55)
[2016-07-10] MEDS: Multivitamin w/ Minerals Tab PO SCH (09:06)
--- NOTE | 2016-07-10 12:57 | General Progress Note ---
Subjective - Review of Systems Service Date: 07/10/16 Subjective: I want to go home Objective - Results Result Diagrams: 07/07/16 15:15 07/07/16 15:15 Recent Labs: Laboratory Last Values WBC 4.9 Th/cmm (4.8-10.8) 07/07/16 15:15 RBC 4.08 Mil/cmm (3.80-5.80) 07/07/16 15:15 Hgb 13.1 gm/dL (12.6-17.4) 07/07/16 15:15 Hct 37.9 % (39.0-49.0) L 07/07/16 15:15 MCV 92.8 fl (80-99) 07/07/16 15:15 MCH 32.1 pg (27.0-31.0) H 07/07/16 15:15 MCHC Differential 34.6 pg (28.0-36.0) 07/07/16 15:15 RDW 14.4 % (11.5-20.0) 07/07/16 15:15 Plt Count 81 Th/cmm (150-400) L 07/07/16 15:15 MPV 8.0 fl 07/07/16 15:15 Band Neutrophils % 0 % (0-10) 07/07/16 15:15 Neutrophils (Manual) 61 % (40-80) 07/07/16 15:15 Lymphocytes 24 % (20-50) 07/07/16 15:15 Monocytes 10 % (2-10) 07/07/16 15:15 Eosinophils 5 % (0-5) 07/07/16 15:15 Basophils 0 % (0-3) 07/07/16 15:15 Platelet Estimate DECREASED PLATELETS (NORMAL) 07/07/16 15:15 Platelet Morphology NORMAL (NORMAL) 07/07/16 15:15 RBC Morph Micro Appear NORMAL (NORMAL) 07/07/16 15:15 Sodium 137 mEq/L (136-145) 07/07/16 15:15 Potassium 4.0 mEq/L (3.5-5.1) 07/07/16 15:15 Chloride 111 mEq/L (98-107) H 07/07/16 15:15 Carbon Dioxide 24.3 mEq/L (21.0-31.0) 07/07/16 15:15 Anion Gap 5.7 (7.0-16.0) L 07/07/16 15:15 BUN 18 mg/dL (7-25) 07/07/16 15:15 Creatinine 0.7 mg/dL (0.7-1.3) 07/07/16 15:15 Est GFR ( Amer) > 60.0 ml/min 07/07/16 15:15 Est GFR (Non-Af Amer) > 60.0 ml/min 07/07/16 15:15 BUN/Creatinine Ratio 25.7 07/07/16 15:15 Glucose 127 mg/dL (70-105) H 07/07/16 15:15 Calcium 9.5 mg/dL (8.6-10.3) 07/07/16 15:15 Total Bilirubin 1.3 mg/dL (0.3-1.0) H 07/07/16 15:15 AST 48 U/L (13-39) H 07/07/16 15:15 ALT 39 U/L (7-52) 07/07/16 15:15 Alkaline Phosphatase 78 U/L (34-104) 07/07/16 15:15 Ammonia 209 umol/L (16-53) H 07/07/16 15:15 Total Protein 5.9 gm/dL (6.0-8.3) L 07/07/16 15:15 Albumin 2.6 gm/dL (4.2-5.5) L 07/07/16 15:15 Globulin 3.3 gm/dL 07/07/16 15:15 Albumin/Globulin Ratio 0.8 (1.0-1.8) L 07/07/16 15:15 TSH 2.40 uIU/ml (0.34-5.60) 07/03/16 19:11 RPR NONREACTIVE (NONREACTIVE) 07/03/16 19:11 - Physical Exam Vitals and I&O: Vital Signs Temp 98.0 F 07/10/16 06:41 Pulse 76 07/10/16 06:41 Resp 19 07/10/16 06:41 BP 96/51 07/10/16 06:41 Pulse Ox 94 07/10/16 06:41 Intake & Output 07/09/16 07/10/16 07/10/16 18:59 06:59 18:59 Intake Total 2100 Balance 2100 Intake: Oral 2100 Other: # Voids 5 2 # Bowel Movements 1 0 Stool Characteristics Liquid Active Medications: Current Medications Acetaminophen (Tylenol) 650 mg PO Q4HR PRN PRN Reason: Pain (Mild) Stop: 09/01/16 20:57 Acetaminophen/Hydrocodone Bitart ([place] 5mg/325mg) 1 tab PO Q6H PRN PRN Reason: Pain (Severe) Stop: 09/01/16 21:08 Al Hydrox/Mg Hydrox/Simethicone (Maalox) 30 ml PO Q4HR PRN PRN Reason: GI DISTRESS Stop: 09/01/16 20:57 Ascorbic Acid (Vitamin C) 500 mg PO DAILY [facility] Stop: 09/02/16 08:59 Last Admin: 07/10/16 09:05 Dose: Not Given Famotidine (Pepcid) 20 mg PO DAILY [facility] Stop: 09/02/16 08:59 Last Admin: 07/10/16 09:05 Dose: Not Given Folic Acid (Folate) 1 mg PO DAILY [facility] Stop: 09/02/16 08:59 Last Admin: 07/10/16 09:05 Dose: Not Given Haloperidol (Haldol) 1 mg PO BID PRN; Protocol PRN Reason: Agitation Stop: 09/04/16 16:59 Last Admin: 07/09/16 17:00 Dose: 1 mg Haloperidol (Haldol) 1 mg PO BID [facility] PRN Reason: Protocol Stop: 09/05/16 08:59 Last Admin: 07/10/16 09:06 Dose: Not Given Lactulose (Cephulac) 60 gm PO TID [facility] Stop: 09/02/16 16:59 Last Admin: 07/10/16 09:06 Dose: Not Given Lorazepam (Ativan) 0.5 mg PO Q4HR PRN; Protocol PRN Reason: Anxiety Stop: 08/02/16 20:57 Last Admin: 07/09/16 17:01 Dose: 0.5 mg Rifaximin (Xifaxan) 400 mg PO BID [facility] Stop: 09/05/16 16:59 Last Admin: 07/10/16 09:06 Dose: Not Given Spironolactone (Aldactone) 100 mg PO DAILY [facility] Stop: 09/02/16 08:59 Last Admin: 07/10/16 09:06 Dose: Not Given Thiamine HCl (Vitamin B1) 100 mg PO DAILY [facility] Stop: 09/02/16 08:59 Last Admin: 07/10/16 09:06 Dose: Not Given Zolpidem Tartrate (Ambien) 5 mg PO HS PRN PRN Reason: Insomnia Stop: 09/01/16 20:57 General: Alert, Other (Confused) HEENT: Atraumatic Neck: Supple Cardiovascular: Regular rate Lungs: Clear to auscultation Abdomen: Bowel sounds, Soft Extremities: Other (No edema) Neurological: Other (Non ambulatory) Skin: Other (Warm and dry) Psych/Mental Status: Other (Confused) Assessment/Plan - Problem List Patient Problems: All Active Problems Hypertension (Acute) I10 Psychosis (Acute) F29 - Assessment Assessment: Patient is confused, in no acute distress. Last eng patient had several bowel movements. - Plan Plan: Ammonia level requested, will continue monitoring.
[2016-07-10 15:25] LABS: ALB/GLOB RATIO 0.7 (1.0-1.8); ALKALINE PHOSPHATASE 89 U/L (34-104); ANION GAP 7.6 (7.0-16.0); BILIRUBIN,TOTAL 1.5 mg/dL (0.3-1.0); BUN - UREA NITROGEN 18 mg/dL (7-25); BUN/CREATININE RATIO 25.7; CALCIUM SERUM 9.1 mg/dL (8.6-10.3); CARBON DIOXIDE 25.1 mEq/L (21.0-31.0); CHLORIDE 108 mEq/L (98-107); CREATININE - SERUM 0.7 mg/dL (0.7-1.3); GLUCOSE 108 mg/dL (70-105); POTASSIUM SERUM 3.7 mEq/L (3.5-5.1); SGOT 53 U/L (13-39); SGPT/ALT 37 U/L (7-52); SODIUM SERUM 137 mEq/L (136-145)
[2016-07-10 16:22] LABS: HEMATOCRIT 35.6 % (39.0-49.0); HEMOGLOBIN 12.4 gm/dL (12.6-17.4); MEAN CELL VOLUME 94.9 fl (80-99); MEAN CORPUSCULAR HEMOGLOBIN 32.9 pg (27.0-31.0); MEAN CORPUSCULAR HGB CONC 34.7 pg (28.0-36.0); MEAN PLATELET VOLUME 8.2 fl; PLATELET COUNT 86 Th/cmm (150-400); RED BLOOD COUNT 3.75 Mil/cmm (3.80-5.80); RED CELL DISTRIBUTION WIDTH 14.1 % (11.5-20.0); WHITE BLOOD COUNT 4.9 Th/cmm (4.8-10.8)
[2016-07-10 17:21] LABS: BAND NEUTROPHILE 0 % (0-10); BASOPHIL 0 % (0-3); EOSINOPHIL 4 % (0-5); NEUTROPHILS 66 % (40-80); PLATELET ESTIMATE DECREASED PLATELETS (NORMAL); TOTAL CELLS COUNTED 100
[2016-07-10 17:22] LABS: PLATELET MORPHOLOGY NORMAL (NORMAL)
--- NOTE | 2016-07-11 00:32 | Progress Notes ---
PSYCHIATRIC PROGRESS NOTE TIME PATIENT SEEN: 8:15 a.m. SUBJECTIVE: Staff was spoken to. The patient is interviewed. Mood is noted to be anxious. Coping skills are noted to be poor. Sleep and appetite are also noted to be very poor. The patient is screaming and yelling. The patient is stating that he does not want to take any medication, does not want to go anyplace. He has his own place. The patient has no insight into his illness. The previous placement is not willing to take the patient and the patient is going to be looked for placement in a different facility. PLAN: To continue the patient with the supportive therapy and follow up. JOB# [id number]
[2016-07-11 07:34] LABS: RED CELL DISTRIBUTION WIDTH 14.5 % (11.5-20.0)
[2016-07-11 07:38] LABS: ALB/GLOB RATIO 0.7 (1.0-1.8); ALKALINE PHOSPHATASE 83 U/L (34-104); ANION GAP 7.9 (7.0-16.0); BILIRUBIN,TOTAL 1.6 mg/dL (0.3-1.0); BUN - UREA NITROGEN 17 mg/dL (7-25); CALCIUM SERUM 9.6 mg/dL (8.6-10.3); CARBON DIOXIDE 23.7 mEq/L (21.0-31.0); CHLORIDE 111 mEq/L (98-107); CREATININE - SERUM 0.5 mg/dL (0.7-1.3); GLUCOSE 88 mg/dL (70-105); POTASSIUM SERUM 3.6 mEq/L (3.5-5.1); SGOT 56 U/L (13-39); SGPT/ALT 40 U/L (7-52); SODIUM SERUM 139 mEq/L (136-145)
[2016-07-11 07:53] LABS: HEMOGLOBIN 13.5 gm/dL (12.6-17.4); RED BLOOD COUNT 4.17 Mil/cmm (3.80-5.80); WHITE BLOOD COUNT 4.9 Th/cmm (4.8-10.8)
[2016-07-11 07:54] LABS: MEAN CELL VOLUME 94.6 fl (80-99); MEAN CORPUSCULAR HEMOGLOBIN 32.4 pg (27.0-31.0); MEAN CORPUSCULAR HGB CONC 34.2 pg (28.0-36.0); MEAN PLATELET VOLUME 8.2 fl; PLATELET COUNT 82 Th/cmm (150-400)
[2016-07-11 07:57] LABS: HEMATOCRIT 39.5 % (39.0-49.0)
[2016-07-11] MEDS: Multivitamin w/ Minerals Tab PO SCH (09:00)
[2016-07-11] MEDS: Lactulose 10 Gm/15 mL 30mL UDC PO SCH ×3 (09:00→21:06)
[2016-07-11 09:24] LABS: TOTAL CELLS COUNTED 100
[2016-07-11 09:25] LABS: EOSINOPHIL 10 % (0-5); NEUTROPHILS 63 % (40-80); PLATELET ESTIMATE DECREASED PLATELETS (NORMAL)
[2016-07-11 09:26] LABS: PLATELET MORPHOLOGY NORMAL (NORMAL)
--- NOTE | 2016-07-11 22:57 | Progress Notes ---
PSYCHIATRIC PROGRESS NOTE TIME PATIENT SEEN: 7:00 a.m. SUBJECTIVE: Staff was spoken to. The patient is interviewed. Mood is noted to be irritable. Affect is constricted. Insight and judgment at this time are noted to be still impaired. Impulse control seems to be poor. Coping skills are noted to be poor. The patient has been having difficult time to cope with the stress. The patient is getting easily upset and verbally abusive towards the staff members. The patient has been placed on Haldol and has been able to tolerate the medications. No side effects to the medications are noted. At this time, there is no placement available. PLAN: To continue the patient with the supportive therapy and wait for placement. [facility]# [id number]
[2016-07-12] MEDS: Multivitamin w/ Minerals Tab PO SCH (10:06)
[2016-07-12] MEDS: Lactulose 10 Gm/15 mL 30mL UDC PO SCH ×3 (10:06→21:23)
--- NOTE | 2016-07-13 01:10 | Progress Notes ---
PSYCHIATRIC PROGRESS NOTE TIME PATIENT SEEN: 7:45 a.m. SUBJECTIVE: Staff was spoken to. The patient is interviewed. Mood is noted to be less irritable. Affect is appropriate. The patient is stating that he is waiting for placement and could not figure it out why they do not want _to take him back. The patient has been on and off taking the medications. Coping skills are noted to be improving, but the patient gets easily irritable and angry. The patient is downplaying his problem with alcohol. The patient is stating that he never had any problems and he should not be considered as one. ASSESSMENT: The patient's impulsivity is coming under control. PLAN: To continue the patient with the supportive therapy and await for placement. JOB# [id number] [email or web address]
[2016-07-13] MEDS: Multivitamin w/ Minerals Tab PO SCH (09:19)
[2016-07-13] MEDS: Lactulose 10 Gm/15 mL 30mL UDC PO SCH ×4 (09:20→21:15)
--- NOTE | 2016-07-14 00:14 | Progress Notes ---
TIME PATIENT SEEN: 8:15 a.m. SUBJECTIVE: Staff was spoken to. The patient is interviewed. Mood is noted to be anxious. The patient is stating that he needs to get out of here, he states that he is fine and he has a place to go. The patient has been coming with all these explanations, but no placement is available at this time. No side effects to the medications are noted. The patient has been complaining the concerns of his yelling and screaming at the staff. No side effects to the medications are noted. ASSESSMENT: The patient is still awaiting placement and impulsive. PLAN: To continue the patient with the current medications and follow up. JOB# [id number]
[2016-07-14] MEDS: Multivitamin w/ Minerals Tab PO SCH (08:33)
[2016-07-14] MEDS: Lactulose 10 Gm/15 mL 30mL UDC PO SCH ×2 (08:33→13:14)
--- NOTE | 2016-07-14 12:39 | General Progress Note ---
Subjective - Review of Systems Service Date: 07/14/16 Subjective: I want to go home Objective - Results Result Diagrams: 07/11/16 06:55 07/11/16 06:55 Recent Labs: Laboratory Last Values WBC 4.9 Th/cmm (4.8-10.8) 07/11/16 06:55 RBC 4.17 Mil/cmm (3.80-5.80) 07/11/16 06:55 Hgb 13.5 gm/dL (12.6-17.4) 07/11/16 06:55 Hct 39.5 % (39.0-49.0) D 07/11/16 06:55 MCV 94.6 fl (80-99) 07/11/16 06:55 MCH 32.4 pg (27.0-31.0) H 07/11/16 06:55 MCHC Differential 34.2 pg (28.0-36.0) 07/11/16 06:55 RDW 14.5 % (11.5-20.0) 07/11/16 06:55 Plt Count 82 Th/cmm (150-400) L 07/11/16 06:55 MPV 8.2 fl 07/11/16 06:55 Band Neutrophils % 0 % (0-10) 07/10/16 16:02 Neutrophils (Manual) 63 % (40-80) 07/11/16 06:55 Lymphocytes 14 % (20-50) L 07/11/16 06:55 Monocytes 13 % (2-10) H 07/11/16 06:55 Eosinophils 10 % (0-5) H 07/11/16 06:55 Basophils 0 % (0-3) 07/10/16 16:02 Platelet Estimate DECREASED PLATELETS (NORMAL) 07/11/16 06:55 Platelet Morphology NORMAL (NORMAL) 07/11/16 06:55 RBC Morph Micro Appear NORMAL (NORMAL) 07/11/16 06:55 Sodium 139 mEq/L (136-145) 07/11/16 06:55 Potassium 3.6 mEq/L (3.5-5.1) 07/11/16 06:55 Chloride 111 mEq/L (98-107) H 07/11/16 06:55 Carbon Dioxide 23.7 mEq/L (21.0-31.0) 07/11/16 06:55 Anion Gap 7.9 (7.0-16.0) 07/11/16 06:55 BUN 17 mg/dL (7-25) 07/11/16 06:55 Creatinine 0.5 mg/dL (0.7-1.3) L 07/11/16 06:55 Est GFR ( Amer) > 60.0 ml/min 07/11/16 06:55 Est GFR (Non-Af Amer) > 60.0 ml/min 07/11/16 06:55 BUN/Creatinine Ratio 34.0 07/11/16 06:55 Glucose 88 mg/dL (70-105) 07/11/16 06:55 Calcium 9.6 mg/dL (8.6-10.3) 07/11/16 06:55 Total Bilirubin 1.6 mg/dL (0.3-1.0) H 07/11/16 06:55 AST 56 U/L (13-39) H 07/11/16 06:55 ALT 40 U/L (7-52) 07/11/16 06:55 Alkaline Phosphatase 83 U/L (34-104) 07/11/16 06:55 Ammonia 158 umol/L (16-53) H 07/11/16 06:55 Total Protein 6.2 gm/dL (6.0-8.3) 07/11/16 06:55 Albumin 2.6 gm/dL (4.2-5.5) L 07/11/16 06:55 Globulin 3.6 gm/dL 07/11/16 06:55 Albumin/Globulin Ratio 0.7 (1.0-1.8) L 07/11/16 06:55 TSH 2.40 uIU/ml (0.34-5.60) 07/03/16 19:11 RPR NONREACTIVE (NONREACTIVE) 07/03/16 19:11 - Physical Exam Vitals and I&O: Vital Signs Temp 97.1 F 07/14/16 06:38 Pulse 96 07/14/16 08:34 Resp 20 07/14/16 10:02 BP 106/75 07/14/16 08:34 Pulse Ox 91 07/14/16 06:38 Intake & Output 07/13/16 07/14/16 07/14/16 18:59 06:59 18:59 Intake Total 2400 0 Balance 2400 0 Intake: Oral 2400 0 Other: # Voids 5 3 # Bowel Movements 1 0 Active Medications: Current Medications Acetaminophen (Tylenol) 650 mg PO Q4HR PRN PRN Reason: Pain (Mild) Stop: 09/01/16 20:57 Acetaminophen/Hydrocodone Bitart (Tatums 5mg/325mg) 1 tab PO Q6H PRN PRN Reason: Pain (Severe) Stop: 09/01/16 21:08 Al Hydrox/Mg Hydrox/Simethicone (Maalox) 30 ml PO Q4HR PRN PRN Reason: GI DISTRESS Stop: 09/01/16 20:57 Ascorbic Acid (Vitamin C) 500 mg PO DAILY [facility] Stop: 09/02/16 08:59 Last Admin: 07/14/16 08:32 Dose: 500 mg Famotidine (Pepcid) 20 mg PO DAILY [facility] Stop: 09/02/16 08:59 Last Admin: 07/14/16 08:32 Dose: 20 mg Folic Acid (Folate) 1 mg PO DAILY [facility] Stop: 09/02/16 08:59 Last Admin: 07/14/16 08:32 Dose: 1 mg Haloperidol (Haldol) 1 mg PO BID PRN; Protocol PRN Reason: Agitation Stop: 09/04/16 16:59 Last Admin: 07/09/16 17:00 Dose: 1 mg Haloperidol (Haldol) 1 mg PO BID [facility] PRN Reason: Protocol Stop: 09/05/16 08:59 Last Admin: 07/14/16 08:33 Dose: 1 mg Lactulose (Cephulac) 60 gm PO TID [facility] Stop: 09/02/16 16:59 Last Admin: 07/14/16 08:33 Dose: Not Given Lorazepam (Ativan) 0.5 mg PO Q4HR PRN; Protocol PRN Reason: Anxiety Stop: 08/02/16 20:57 Last Admin: 07/09/16 17:01 Dose: 0.5 mg Rifaximin (Xifaxan) 400 mg PO BID [facility] Stop: 09/05/16 16:59 Last Admin: 07/14/16 08:33 Dose: 400 mg Spironolactone (Aldactone) 100 mg PO DAILY [facility] Stop: 09/02/16 08:59 Last Admin: 07/14/16 08:34 Dose: 100 mg Thiamine HCl (Vitamin B1) 100 mg PO DAILY [facility] Stop: 09/02/16 08:59 Last Admin: 07/14/16 08:35 Dose: 100 mg Zolpidem Tartrate (Ambien) 5 mg PO HS PRN PRN Reason: Insomnia Stop: 09/01/16 20:57 Last Admin: 07/13/16 20:56 Dose: 5 mg General: Alert, Other (Confused) HEENT: Atraumatic Neck: Supple Cardiovascular: Regular rate Lungs: Clear to auscultation Abdomen: Bowel sounds, Soft Extremities: Other Neurological: Other (Unstable gait) Skin: Other (Warm and dry) Psych/Mental Status: Other (Confused) Assessment/Plan - Problem List Patient Problems: All Active Problems Hypertension (Acute) I10 Psychosis (Acute) F29 - Assessment Assessment: Patient is confused, in no acute distress. - Plan Plan: Patient will be discharge.
--- NOTE | 2016-07-15 00:01 | Progress Notes ---
PSYCHIATRIC PROGRESS NOTE TIME PATIENT SEEN: 8:30 a.m. SUBJECTIVE: Staff was spoken to. The patient's coping skills are noted to be very poor. Sleep and appetite also noted to be poor. The patient has been having difficult time to decide, but the patient is stating that he has been in here for too long and needs to be out. ASSESSMENT: The patient is stabilizing. PLAN: To discharge the patient today for followup on outpatient basis. [facility]# [id number]
--- NOTE | 2016-07-26 20:26 | Discharge Summary ---
IDENTIFYING DATA: The patient is a 65-year-old male, resident of [facility] in [place]. JUSTIFICATION OF HOSPITALIZATION: The patient is admitted on a voluntary basis in view of his acute agitation. CHIEF COMPLAINT: "I don't need to tell. Go and ask the people that sent me in here." DIAGNOSES AT THE TIME OF ADMISSION: AXIS I: Bipolar disorder, not otherwise specified. AXIS II: None. AXIS III: As per Dr. Villagran. HISTORY OF PRESENT ILLNESS: Please refer to the 07/04/2016 dictation done by me. Physical examination was done by Dr. Villagran and is noted to be significant for cirrhosis of the liver and hypertension. The lab studies done during the hospitalization have been reviewed by Dr. Villagran. HOSPITAL COURSE AND RESPONSE TO TREATMENT: The patient has been observed on the Inpatient Unit, provided with supportive psychotherapy. The patient has been closely monitored. The patient has been given the haloperidol 1 mg twice a day for his psychosis and aggressive behavior. The patient has been closely monitored. The patient has been supplemented with the lorazepam in between. With these medications, the patient has started to do fairly well. The aggressive behavior came under control and the patient has been finally discharged to [place] to be followed up by Dr. Black. MENTAL STATUS EXAMINATION AT THE TIME OF THE DISCHARGE: The patient's mood is noted to be less irritable. Affect is appropriate. Not suicidal or homicidal. Coping skills are noted to be improving. Sleep and appetite are also noted to be improving. DIAGNOSES AT THE TIME OF DISCHARGE: AXIS I: Bipolar disorder, mixed. AXIS II: None. AXIS III: Cirrhosis of the liver. AFTERCARE PLAN: The patient is discharged to [place] to be followed up on an outpatient basis. JOB# [id number]
== END 2016-07-14 14:00 | DRG 885 ==
LOC: ER 17:44 → GERO 20:29
PROVIDERS: ADMIT Psychiatry & Neurology Psychiatry; ATTEND Psychiatry & Neurology Psychiatry
DX: F31.9 Bipolar disorder, unspecified (principal); K74.60 Unspecified cirrhosis of liver; I10 Essential (primary) hypertension; K21.9 Gastro-esophageal reflux disease without esophagitis; M62.81 Muscle weakness (generalized); F29 Unspecified psychosis not due to a substance or known physiological condition
CPT/HCPCS: 36415-UA; 71010-TC; 80053-TC; 82140-TC; 84443-TC; 85007-TC; 85027-TC; 86592-TC; 90899; 93005; G0410; J1630; J2060; J7030

== ENCOUNTER 2018-01-01 23:22 | Emergency (ER) | payer MEDICARE, OTHER ==
--- NOTE | 2018-01-01 23:50 | ED Physician Chart ---
ED Chief Complaint/HPI - Patient Information Date Seen:: 01/01/18 Time Seen:: 23:42 Chief Complaint:: chronic pain History of Present Illness:: 67 yr old male here for chronic pain hx liver cirrhosis Allergies:: Allergies Allergy/AdvReac Type Severity Reaction Status Date / Time No Known Allergies Allergy Verified 01/01/18 23:41 Historian:: Patient, Medical Records ED Review of Systems - Review of Systems General/Constitutional: No fever, No chills, No weight loss, No weakness, No diaphoresis, No edema, No loss of appetite Skin: No skin lesions, No rash, No bruising Head: No headache, No light-headedness Eyes: No loss of vision, No pain, No diplopia ENT: No earache, No nasal drainage, No sore throat, No tinnitus Neck: No neck pain, No swelling, No thyromegaly, No stiffness, No mass noted Cardio Vascular: No chest pain, No palpitations, No PND, No orthopnea, No edema Pulmonary: No SOB, No cough, No sputum, No wheezing GI: No nausea, No vomiting, No diarrhea, No pain, No melena, No hematochezia, No constipation, No hematemesis G/U: No dysuria, No frequency, No hematuria Musculoskeletal: No bone or joint pain, No back pain, No muscle pain Endocrine: No polyuria, No polydipsia Psychiatric: No prior psych history, No depression, No anxiety, No suicidal ideation Hematopoietic: No bruising, No lymphadenopathy Allergic/Immuno: No urticaria, No angioedema Neurological: No syncope, No focal symptoms, No weakness, No paresthesia, No headache, No seizure, No dizziness, No confusion, No vertigo ED Past Medical History - Past Medical History Past Medical History: Other (liver cirrhosis) Family Medical History - Family Member Mother History Unknown: Yes Ethnicity: Unknown Living Status: Unknown Hx Family Cancer: No Hx Family Coronary Artery Disease: No Hx Family Congestive Heart Failure: No Hx Family Hypertension: No Hx Family Stroke: No Hx Family Diabetes: No Hx Family Seizures: No Hx Family Dementia: No Hx Family AIDS: No Hx Family HIV: No Hx Family COPD: No Hx Family Hepatitis: No Hx Family Psychiatric Problems: No Hx Family Tuberculosis: No ED Physical Exam - Physical Examination General/Constitutional: Awake, Well-developed, well-nourished, Alert, No distress, GCS 15, Non-toxic appearing, Ambulatory Head: Atraumatic Eyes: Lids, conjuctiva normal, PERRL, EOMI Skin: Nl inspection, No rash, No skin lesions, No ecchymosis, Well hydrated, No lymphadenopathy ENMT: External ears, nose nl, Nasal exam nl, Lips, teeth, gums nl Neck: Nontender, Full ROM w/o pain, No JVD, No nuchal rigidity, No bruit, No mass, No stridor Respiratory: Nl effort/Exclusion, Clear to Auscultation, No Wheeze/Rhonchi/Rales Cardio Vascular: RRR, No murmur, gallop, rubs, NL S1 S2 GI: No tenderness/rebounding/guarding, No organomegaly, No hernia, Normal BS's, Nondistended, No mass/bruits, No McBurney tenderness : No CVA tenderness Extremities: No tenderness or effusion, Full ROM, normal strength in all extremities, No edema, Normal digits & nails Neuro/Psych: Alert/oriented, DTR's symmetric, Normal sensory exam, Normal motor strength, Judgement/insight normal, Mood normal, Normal gait, No focal deficits Misc: Normal back, No paraspinal tenderness ED Assessment - Assessment General Assessment: chronic pain back ED Septic Shock - . Is Septic Shock (SBP<90, OR Lactate>4 mmol\L) present?: No ED Reassessment (Disposition) - Reassessment Reassessment:: chronic pain liver cirrhosis - Diagnosis Diagnosis:: chronic pain liver cirrhosis - Patient Disposition Discharge/Transfer:: [facility] - SNF Condition at Disposition:: Stable
== END 2018-01-02 00:49 ==
LOC: ER 23:22
DX: G89.29 Other chronic pain (principal); K74.60 Unspecified cirrhosis of liver
CPT/HCPCS: 99283; 96372; J1885; Z7502

== ENCOUNTER 2018-01-12 20:58 | Inpatient (IN) | payer MEDICARE, OTHER ==
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
[2018-01-12 21:59] LABS: % MONOCYTES 11.3 % (2.0-10.0); % NEUTROPHILS 62.7 % (40.0-80.0); EOSINOPHILE ABSOLUTE 0.1 Th/cmm (0.1-0.4); HEMATOCRIT 38.3 % (41.0-60); HEMOGLOBIN 12.4 gm/dL (12-16); LYMPHOCYTE ABSOLUTE 0.9 Th/cmm (1.5-3.0); MEAN CELL VOLUME 78.3 fl (80-99); MEAN CORPUSCULAR HEMOGLOBIN 25.4 pg (27.0-31.0); MEAN CORPUSCULAR HGB CONC 32.4 pg (28.0-36.0); MEAN PLATELET VOLUME 7.7 fl; MONOCYTE ABSOLUTE 0.5 Th/cmm (0.3-1.0); NEUTROPHILE ABSOLUTE 2.8 Th/cmm (1.8-8.0); PLATELET COUNT 174 Th/cmm (150-400); RED BLOOD COUNT 4.89 Mil/cmm (3.80-5.80); RED CELL DISTRIBUTION WIDTH 17.4 % (11.5-20.0); WHITE BLOOD COUNT 4.3 Th/cmm (4.8-10.8)
[2018-01-12 22:12] LABS: ALB/GLOB RATIO 0.7 (1.0-1.8); ALBUMIN 2.8 gm/dL (4.2-5.5); ALKALINE PHOSPHATASE 77 U/L (34-104); AMYLASE SERUM 41 U/L (29-103); ANION GAP 9.6 (7.0-16.0); BILIRUBIN,TOTAL 1.2 mg/dL (0.3-1.0); BUN - UREA NITROGEN 16 mg/dL (7-25); CALCIUM SERUM 8.9 mg/dL (8.6-10.3); CARBON DIOXIDE 23.2 mEq/L (21.0-31.0); CHLORIDE 109 mEq/L (98-107); CREATININE - SERUM 0.9 mg/dL (0.7-1.3); GFR AFRICAN-AMERICAN > 60.0 ml/min (>90); GFR NON AFRICAN-AMERICAN > 60.0 ml/min; GLUCOSE 101 mg/dL (70-105); LIPASE 31 U/L (11-82); POTASSIUM SERUM 3.8 mEq/L (3.5-5.1); SGOT 57 U/L (13-39); SGPT/ALT 30 U/L (7-52); SODIUM SERUM 138 mEq/L (136-145); TOTAL PROTEIN,SERUM 6.9 gm/dL (6.0-8.3)
[2018-01-12 22:55] LABS: URINE MICROSCOPIC INDICATED? YES; URINE SOURCE MIDSTREAM
[2018-01-12 22:58] LABS: URINE BILIRUBIN NEGATIVE (NEGATIVE); URINE BLOOD NEGATIVE (NEGATIVE); URINE GLUCOSE (UA) NEGATIVE (NEGATIVE); URINE KETONE NEGATIVE (NEGATIVE); URINE LEUKOCYTE ESTERASE SMALL (NEGATIVE); URINE NITRATE NEGATIVE (NEGATIVE); URINE PROTEIN NEGATIVE (NEGATIVE); URINE UROBILINOGEN 0.2 E.U./dL (0.2 - 1.0)
[2018-01-12 23:29] LABS: URINE CLARITY CLEAR (CLEAR); URINE COLOR YELLOW; URINE RBC 0-2 /hpf (0-5)
[2018-01-12 23:30] LABS: URINE BACTERIA MODERATE /hpf (NONE SEEN); URINE EPITHELIAL CELLS OCCASIONAL /lpf (FEW)
[2018-01-12] MEDS ORDERED: Sodium Chloride 0.9% 500 ML IV ONE (23:49)
[2018-01-13] MEDS ORDERED: cefTRIAXone 1 GM in Sodium Chloride 0.9% 50 ML IV ONE (01:00)
[2018-01-13] MEDS: D5-0.45NS 1,000 ML IV SCH ×2 (02:52→15:07)
[2018-01-13 02:59] LABS: AMPHETAMINE URINE NEGATIVE (NEGATIVE); BARBITURATES URINE NEGATIVE (NEGATIVE); BENZODIAZEPINES QUAL URINE POSITIVE (NEGATIVE); CANNABINOID THC NEGATIVE (NEGATIVE); COCAINE METABOLITE QUAL URINE NEGATIVE (NEGATIVE); METHADONE URINE NEGATIVE (NEGATIVE); METHAMPHETAMINES QUAL URINE NEGATIVE (NEGATIVE); OPIATES (MORPHINE) QUAL. URINE NEGATIVE (NEGATIVE); PHENCYCLIDINE (PCP) URINE NEGATIVE (NEGATIVE); TRICYCLICS (TCA) QUAL. URINE NEGATIVE (NEGATIVE)
[2018-01-13] MEDS: Cefepime 1 GM in Sodium Chloride 0.9% 50 ML IV SCH ×2 (08:18→20:20)
--- NOTE | 2018-01-13 08:26 | Diagnostic Imaging Report ---
Lumbar spine 3 views Indication: Low back pain Comparison: none Findings: There is mild rightward convex scoliosis of the lumbar spine. There may be partial sacralization of L5. No acute compression fracture or subluxation. Moderate to advanced degenerative changes are seen with moderate to advanced disc space loss of height at L2/L3, L4/L5, and L5/S1. No acute compression fracture subluxation. Moderate facet degenerative changes are seen greatest in the lower lumbar spine. Atherosclerosis is noted. The SI joints demonstrate mild degenerative changes. Impression: Moderate to advanced degenerative changes as above. Mild scoliosis. In the setting of trauma, if clinical symptoms persist and there is continued concern for an occult fracture, follow up exams in 5-7 days is suggested.
--- NOTE | 2018-01-13 08:28 | Diagnostic Imaging Report ---
CHEST X-RAY: AP view INDICATION: Shortness of breath COMPARISON: 07/03/2016 FINDINGS: Mild chronic interstitial lung changes are noted. There is no focal consolidation or pleural effusions The heart is normal in size. Degenerative changes of the spine and shoulders are noted. IMPRESSION: Mild chronic interstitial lung changes. No focal consolidation identified.
[2018-01-13] MEDS ORDERED: Hydrocodone/APAP 5mg/325mg Tab PO PRN (11:07)
[2018-01-13 18:12] LABS: AMPHETAMINE URINE NEGATIVE (NEGATIVE); BARBITURATES URINE NEGATIVE (NEGATIVE); COCAINE METABOLITE QUAL URINE POSITIVE (NEGATIVE); METHAMPHETAMINES QUAL URINE NEGATIVE (NEGATIVE); PHENCYCLIDINE (PCP) URINE NEGATIVE (NEGATIVE); TRICYCLICS (TCA) QUAL. URINE NEGATIVE (NEGATIVE)
[2018-01-13 18:13] LABS: BENZODIAZEPINES QUAL URINE NEGATIVE (NEGATIVE); CANNABINOID THC NEGATIVE (NEGATIVE); METHADONE URINE NEGATIVE (NEGATIVE); OPIATES (MORPHINE) QUAL. URINE POSITIVE (NEGATIVE)
[2018-01-13] MEDS ORDERED: IBUPROFEN 200 MG PO PRN (21:51)
--- NOTE | 2018-01-13 23:01 | History & Physical ---
ADMIT DATE: 01/13/2018 CHIEF COMPLAINT: Generalized weakness, severe back pain. HISTORY OF PRESENT ILLNESS: The patient is a 67-year-old male with a long history of chronic back pain, substance abuse, admitted to [facility] with generalized weakness, back pain. Initial workup was significant for urinary tract infection. Intractable back pain, the patient started on IV fluid, antibiotic, pain medication. Denies any chest pain, any shortness of breath, nausea, vomiting, fever or chills. Urine drug screen positive for cocaine. PAST MEDICAL HISTORY: Significant for chronic back pain, degenerative joint disease. PAST SURGICAL HISTORY: Left knee surgery. SOCIAL HISTORY: No smoking, no alcohol use or drug. FAMILY HISTORY: Noncontributory. REVIEW OF SYSTEMS: RENAL SYSTEM: No history of chronic renal disorder. CARDIOVASCULAR SYSTEM: No coronary artery disease. ENDOCRINE SYSTEM: No diabetes or thyroid problem. GASTROINTESTINAL SYSTEM: No upper or lower gastrointestinal bleed. NEUROLOGICAL SYSTEM: No seizure disorder. MUSCULOSKELETAL SYSTEM: Has degenerative joint disease, chronic back pain. HEMATOLOGICAL SYSTEM: No bleeding tendency. RESPIRATORY SYSTEM: No asthma. GENITOURINARY: No dysuria or hematuria. PHYSICAL EXAMINATION: GENERAL: He is awake, alert, oriented. VITAL SIGNS: Temperature 98, heart rate 60, blood pressure is 110/68. HEENT: Normocephalic. Pupils reacting equal to light and accommodation. Sclerae clear. NECK: Supple. Negative for lymphadenopathy, JVD or bruit. CHEST: Entry of air bilaterally normal. No rhonchi or wheezing. HEART: S1, S2. No murmur or gallop rhythm. ABDOMEN: Soft, bowel sounds positive. EXTREMITIES: No edema. NEUROLOGIC: He is awake, alert, oriented. No focal motor or sensory deficit. Cranial nerves 2-12 are intact. LABORATORY DATA: White blood cell 4.3, hemoglobin 12.4, hematocrit 38.3, platelets 174. Sodium 138, potassium 3.8, BUN 16, creatinine 0.9. BNP was 289. Albumin 2.8. ASSESSMENT: 1. Urinary tract infection. 2. Intractable back pain. 3. Degenerative disk disease. 4. Congestive heart failure. PLAN: The patient is admitted to medical floor under Dr. Gavin's service, started on IV fluid, IV antibiotic. Dr. Montanez consulted on the case. The patient is a full code. JOB# [id number]
[2018-01-14] MEDS ORDERED: Non-Formulary Item 1 EA (Docusate Sodium [Docusate Sodium] 200 MG) PO SCH (09:00)
[2018-01-14] MEDS ORDERED: Multivitamin w/ Minerals Tab PO SCH (09:00)
[2018-01-14] MEDS ORDERED: Lactulose 10 Gm/15 mL 30mL UDC PO SCH (09:00)
[2018-01-14] MEDS ORDERED: Aspirin 81mg Chewable Tab PO SCH (09:00)
[2018-01-14] MEDS ORDERED: Hydrocodone/APAP 10 mg/325 mg Tab PO SCH (09:00)
[2018-01-14] MEDS ORDERED: Non-Formulary Item 1 EA (Travoprost [Travatan Z] 1 DROP) EACH EYE SCH (21:00)
== END 2018-01-14 00:45 | DRG 689 ==
LOC: ER 20:58 → MSI 01-13 01:10
PROVIDERS: ADMIT Family Medicine; ATTEND Family Medicine
DX: N39.0 Urinary tract infection, site not specified (principal); E43 Unspecified severe protein-calorie malnutrition; I50.32 Chronic diastolic (congestive) heart failure; G89.29 Other chronic pain; H40.9 Unspecified glaucoma; K74.60 Unspecified cirrhosis of liver; M54.5 Low back pain; M19.90 Unspecified osteoarthritis, unspecified site; Z98.890 Other specified postprocedural states
CPT/HCPCS: 36415-UA; 71045-TC; 72110-TC; 80053-TC; 80307; 81001-TC; 82150-TC; 83690-TC; 83880-TC; 84484-TC; 85025-TC; 87086-90; 93005; 96375; J0692; J0696; J1885; J7040

== ENCOUNTER 2018-01-14 00:45 | Inpatient (IN) | payer MEDICARE, OTHER ==
[2018-01-14 01:07] VITALS: BP 97/67
[2018-01-14] MEDS ORDERED: Maalox 30 mL Cup PO PRN (01:08)
[2018-01-14] MEDS ORDERED: Magnesium Hydroxide (MOM) 30 mL UDC PO PRN (01:08)
[2018-01-14] MEDS: Lactulose 10 Gm/15 mL 30mL UDC PO SCH (10:00)
[2018-01-14] MEDS: Multivitamin Tab PO SCH (10:05)
[2018-01-14] MEDS: Aspirin 81mg Chewable Tab PO SCH (10:06)
[2018-01-14] MEDS: Cortisporin Otic Soln 10mL Bottle EACH EAR SCH ×2 (10:07→13:24)
[2018-01-14] MEDS: Hydrocodone/APAP 10 mg/325 mg Tab PO SCH (10:11)
--- NOTE | 2018-01-14 23:21 | History & Physical ---
ADMIT DATE: 01/14/2018 HISTORY OF PRESENT ILLNESS: The patient is a 67-year-old male with long history of benign prostatic hypertrophy, psychosis and degenerative joint disease, admitted to [facility] with urinary tract infection and psychosis. The patient started on antibiotics, stabilized clinically, transferred to [facility]. The patient feels better. No fever, no chills, no nausea, no vomiting. PAST MEDICAL HISTORY: Significant for degenerative joint disease, benign prostatic hypertrophy, chronic back pain, psychosis, mild dementia. PAST SURGICAL HISTORY: No recent surgery. ALLERGIES: None. MEDICATIONS: Follow admission reconciliation. SOCIAL HISTORY: No smoking, no alcohol. He use drugs. FAMILY HISTORY: Noncontributory. REVIEW OF SYSTEMS: IMMUNO SYSTEM: No history of chronic immuno disorder. CARDIOVASCULAR SYSTEM: No coronary artery disease. ENDOCRINE SYSTEM: No diabetes or thyroid problem. GASTROINTESTINAL SYSTEM: No upper or lower gastrointestinal bleed. NEUROLOGICAL SYSTEM: No seizure disorder. MUSCULOSKELETAL SYSTEM: Has chronic back pain, degenerative joint disease. GENITOURINARY: Has benign prostatic hypertrophy. PHYSICAL EXAMINATION: GENERAL: He is awake, alert, oriented. VITAL SIGNS: His temperature 99.8, heart rate 75, blood pressure 109/77. HEENT: Normocephalic. Pupils reactive to light and accommodation. Sclerae clear. NECK: Supple. Negative for lymphadenopathy, JVD or bruit. CHEST: Air bilaterally normal. No rhonchi or wheezing. HEART: S1, S2 normal. No murmur or gallop rhythm. ABDOMEN: Soft, bowel sounds positive. EXTREMITIES: No edema. NEUROLOGIC: He is awake, alert, oriented. No focal motor deficits. Cranial nerves 2-12 intact. ASSESSMENT: 1. Urinary tract infection. 2. Benign prostatic hypertrophy. 3. Degenerative disk disease. 4. Chronic back pain. 5. Psychosis. PLAN: The patient admitted to the hospital under Dr. Montanez's service. Medical problems addressed during hospitalization are psychosis. Medical problems to be addressed at discharge is benign prostatic hypertrophy, chronic back pain. The patient is medically stable for activity. Thank you, Dr. Montanez, for asking me to see your patient. JOB# [id number]
[2018-01-15] MEDS: Aspirin 81mg Chewable Tab PO SCH (08:53)
[2018-01-15] MEDS: Lactulose 10 Gm/15 mL 30mL UDC PO SCH (08:53)
[2018-01-15] MEDS: Multivitamin w/ Minerals Tab PO SCH (08:54)
[2018-01-15] MEDS: Multivitamin Tab PO SCH (08:55)
[2018-01-15] MEDS: Cortisporin Otic Soln 10mL Bottle EACH EAR SCH ×3 (10:22→20:47)
--- NOTE | 2018-01-15 16:55 | Internal Medicine Prog Note ---
Internal Medicine Subjective - Subjective Service Date: 01/15/18 Patient seen and examined:: with staff (HE FEELS BETTER,LESS BACK PAIN.) Patient is:: awake, verbal, in bed, talking Per staff patient has:: no adverse event Internal Medicine Objective - Physical Exam Vitals and I&O: Vital Signs Temp 100.4 F 01/15/18 14:00 Pulse 78 01/15/18 14:00 Resp 20 01/15/18 14:00 BP 119/66 01/15/18 14:00 Pulse Ox 98 01/15/18 14:00 Intake & Output 01/14/18 01/15/18 01/15/18 18:59 06:59 18:59 Intake Total 960 240 Balance 960 240 Intake: Oral 960 240 Other: # Voids 3 2 # Bowel Movements 1 Active Medications: Current Medications Acetaminophen (Tylenol) 650 mg PO Q6HR PRN PRN Reason: Pain (Mild) Stop: 03/15/18 21:25 Acetaminophen/Hydrocodone Bitart ([place] 10 Mg/325 Mg) 1 tab PO BID [facility] Stop: 03/15/18 08:59 Last Admin: 01/14/18 10:11 Dose: 1 tab Al Hydrox/Mg Hydrox/Simethicone (Maalox) 30 ml PO Q4HR PRN PRN Reason: GI DISTRESS Stop: 03/15/18 01:07 Aripiprazole (Abilify) 2 mg PO DAILY [facility]; Protocol Stop: 03/16/18 08:59 Aspirin (Aspirin Chewable) 81 mg PO DAILY [facility] Stop: 03/15/18 08:59 Last Admin: 01/15/18 08:53 Dose: 81 mg Bisacodyl (Dulcolax 10 Mg Supp) 10 mg RC DAILY PRN PRN Reason: Constipation Stop: 03/15/18 01:10 Docusate Sodium (Colace) 200 mg PO BID [facility] Stop: 03/15/18 08:59 Last Admin: 01/15/18 08:55 Dose: 200 mg Furosemide (Lasix) 20 mg PO DAILY [facility] Stop: 03/15/18 08:59 Last Admin: 01/15/18 08:56 Dose: 20 mg Ibuprofen (Advil) 200 mg PO Q8H PRN PRN Reason: Pain (Mild) Stop: 03/15/18 07:14 Lactulose (Cephulac) 10 gm PO BID [facility] Stop: 03/15/18 08:59 Last Admin: 01/15/18 08:53 Dose: 10 gm Latanoprost (Xalatan 0.005% Ophth Soln) 1 drop EACH EYE HS [facility] Stop: 03/15/18 20:59 Last Admin: 01/14/18 21:15 Dose: 1 drop Levofloxacin (Levaquin) 250 mg PO DAILY [facility] Stop: 01/21/18 08:59 Last Admin: 01/15/18 08:55 Dose: 250 mg Lorazepam (Ativan) 0.5 mg PO Q4HR PRN; Protocol PRN Reason: Anxiety/Agitation Stop: 02/13/18 01:07 Magnesium Hydroxide (Milk Of Magnesia) 30 ml PO HS PRN PRN Reason: Constipation Memantine (Namenda) 5 mg PO DAILY [facility] Stop: 03/15/18 08:59 Last Admin: 01/15/18 08:55 Dose: 5 mg Multivitamins/Vitamin C (Theragran) 1 tab PO DAILY [facility] Stop: 03/15/18 08:59 Last Admin: 01/15/18 08:55 Dose: 1 tab Neomycin/Polymyxin/Hydrocortisone (Cortisporin Otic Soln) 2 drop EACH EAR QID [facility] Stop: 03/15/18 08:59 Last Admin: 01/15/18 10:22 Dose: Not Given Zolpidem Tartrate (Ambien) 5 mg PO HS PRN PRN Reason: Insomnia Stop: 03/15/18 01:07 Last Admin: 01/14/18 21:14 Dose: 5 mg HEENT: NC/AT, PERRLA, EOMI, anicteric sclerae, throat clear Neck: No thyromegaly, +2 carotid pulse wo bruit Lungs: CTAB Cardiovascular: RRR, Normal S1, Normal S2 Abdomen: non-tender, non-distended Extremities: clear Neurological: no change Internal Medicine Assmt/Plan - Assessment Assessment: 1.UTI. 2.BPH. 3.DDD. 4.PSYCHOSIS. - Plan Plan: CONTINUE ON CURRENT MEDICATION AND DIET.
[2018-01-15] MEDS: Hydrocodone/APAP 10 mg/325 mg Tab PO SCH ×2 (17:28→17:29)
[2018-01-16] MEDS: Hydrocodone/APAP 10 mg/325 mg Tab PO SCH ×3 (10:00→17:40)
[2018-01-16] MEDS: Multivitamin w/ Minerals Tab PO SCH (10:00)
[2018-01-16] MEDS: Multivitamin Tab PO SCH (10:02)
[2018-01-16] MEDS: Lactulose 10 Gm/15 mL 30mL UDC PO SCH ×3 (10:02→17:41)
[2018-01-16] MEDS: Cortisporin Otic Soln 10mL Bottle EACH EAR SCH ×4 (10:03→20:35)
[2018-01-16] MEDS: Aspirin 81mg Chewable Tab PO SCH (10:03)
--- NOTE | 2018-01-16 16:03 | General Progress Note ---
Subjective - Review of Systems Service Date: 01/16/18 Subjective: awake and alert no complaint Objective - Physical Exam Vitals and I&O: Vital Signs Temp 99 F 01/16/18 08:00 Pulse 85 01/16/18 08:00 Resp 20 01/16/18 08:00 BP 116/70 01/16/18 09:57 Pulse Ox 96 01/16/18 08:00 Intake & Output 01/15/18 01/16/18 01/16/18 18:59 06:59 18:59 Intake Total 240 Balance 240 Intake: Oral 240 Other: # Voids 2 Active Medications: Current Medications Acetaminophen (Tylenol) 650 mg PO Q6HR PRN PRN Reason: Pain (Mild) Stop: 03/15/18 21:25 Acetaminophen/Hydrocodone Bitart ([place] 10 Mg/325 Mg) 1 tab PO BID [facility] Stop: 03/15/18 08:59 Last Admin: 01/16/18 10:30 Dose: 1 tab Al Hydrox/Mg Hydrox/Simethicone (Maalox) 30 ml PO Q4HR PRN PRN Reason: GI DISTRESS Stop: 03/15/18 01:07 Aripiprazole (Abilify) 2 mg PO DAILY [facility]; Protocol Stop: 03/16/18 08:59 Last Admin: 01/16/18 10:07 Dose: 2 mg Aspirin (Aspirin Chewable) 81 mg PO DAILY [facility] Stop: 03/15/18 08:59 Last Admin: 01/16/18 10:03 Dose: 81 mg Bisacodyl (Dulcolax 10 Mg Supp) 10 mg RC DAILY PRN PRN Reason: Constipation Stop: 03/15/18 01:10 Docusate Sodium (Colace) 200 mg PO BID [facility] Stop: 03/15/18 08:59 Last Admin: 01/16/18 10:03 Dose: 200 mg Furosemide (Lasix) 20 mg PO DAILY [facility] Stop: 03/15/18 08:59 Last Admin: 01/16/18 09:57 Dose: 20 mg Ibuprofen (Advil) 200 mg PO Q8H PRN PRN Reason: Pain (Mild) Stop: 03/15/18 07:14 Lactulose (Cephulac) 10 gm PO BID [facility] Stop: 03/15/18 08:59 Last Admin: 01/16/18 10:30 Dose: 10 gm Latanoprost (Xalatan 0.005% Ophth Soln) 1 drop EACH EYE HS [facility] Stop: 03/15/18 20:59 Last Admin: 01/15/18 20:47 Dose: 1 drop Levofloxacin (Levaquin) 250 mg PO DAILY [facility] Stop: 01/21/18 08:59 Last Admin: 01/16/18 10:02 Dose: 250 mg Lorazepam (Ativan) 0.5 mg PO Q4HR PRN; Protocol PRN Reason: Anxiety/Agitation Stop: 02/13/18 01:07 Magnesium Hydroxide (Milk Of Magnesia) 30 ml PO HS PRN PRN Reason: Constipation Memantine (Namenda) 5 mg PO DAILY [facility] Stop: 03/15/18 08:59 Last Admin: 01/16/18 10:01 Dose: 5 mg Multivitamins/Vitamin C (Theragran) 1 tab PO DAILY [facility] Stop: 03/15/18 08:59 Last Admin: 01/16/18 10:02 Dose: 1 tab Neomycin/Polymyxin/Hydrocortisone (Cortisporin Otic Soln) 2 drop EACH EAR QID [facility] Stop: 03/15/18 08:59 Last Admin: 01/16/18 15:43 Dose: 2 drop Zolpidem Tartrate (Ambien) 5 mg PO HS PRN PRN Reason: Insomnia Stop: 03/15/18 01:07 Last Admin: 01/14/18 21:14 Dose: 5 mg General: Alert, No acute distress HEENT: Atraumatic, PERRLA, EOMI Neck: Supple, JVD Cardiovascular: Regular rate, Normal S1, Normal S2 Lungs: Clear to auscultation Abdomen: Bowel sounds, Soft Assessment/Plan - Assessment Assessment: 1.UTI. 2.BPH. 3.DDD. 4.PSYCHOSIS. - Plan Plan: continue current treatment
--- NOTE | 2018-01-16 22:10 | Psychiatric Evaluation ---
DATE OF SERVICE: PSYCHIATRIC INITIAL EVALUATION AND MENTAL STATUS EXAM AGE: 67. SEX: Male. PHYSICIAN: Dr. Montanez. CHIEF COMPLAINT: Agitation and aggressive behavior. HISTORY OF PRESENT ILLNESS: The patient is a 68-year-old male with history of dementia. The patient was transferred from [facility] because of increased irritability and anxiety. The patient has been extremely agitated and angry. The patient also has been argumentative and unable to follow any of staff instructions. Also, has been aggressive with peers and staff. He also has not been able to follow directions. PAST PSYCHIATRIC HISTORY: The patient has history of what seems to be dementia. The patient is taking Namenda 5 mg everyday. PAST MEDICAL HISTORY: The patient has hypertension and glaucoma. SOCIAL HISTORY: The patient lives in [facility]. No known alcohol or drug use. ALLERGIES: No known allergies. MENTAL STATUS EXAMINATION: The patient appears slightly older than stated age. Disheveled. Flat affect. Irritable mood. Thought processes are circumstantial with flight of ideas. The patient seems to be confused and unable to answer questions regarding hallucinations or delusions or about suicide or homicide. The patient is alert and oriented to the situation, but not the place or person. Impaired immediate and recent memory, but intact to remote memory and he remembered his date. Poor insight and poor judgment. ASSESSMENT: PRIMARY DIAGNOSIS: Unspecified psychosis. SECONDARY DIAGNOSIS: Dementia, moderate to severe, with psychotic features. TREATMENT PLAN: We will monitor the patient's behavior and condition closely. We will evaluate the use of antipsychotic medication and/or mood stabilizer. We will work on behavioral modification. ESTIMATED LENGTH OF STAY: 5-7 days. THE PATIENT'S STRENGTHS AND WEAKNESSES: The patient's strength is not clear at this time. Weakness are poor judgment and ineffective coping and poor impulse control. AFTER DISCHARGE PLAN: The patient will return to [facility] with plans for outpatient treatment and followup. CRITERIA FOR DISCHARGE: The patient will not be agitated and better impulse control and stabilize psychotropic medications. [facility]# [id number]
--- NOTE | 2018-01-16 23:49 | Progress Notes ---
DATE: 01/15/2018 DATE OF REPORT: 01/15/2018 Chart reviewed and the patient interviewed. Also discussed the patient's condition with the staff and reviewed records and labs. The patient continued to be easily agitated and irritable moods. The patient also is isolative and strong and interacting minimally with others. He also is still restless and he still needs lots of redirections. Also, his affect is flat and is not being able to interact. ASSESSMENT: The patient is still agitated and psychotic. TREATMENT PLAN: Continue to monitor his behavior and his condition closely. Also, we will adjust psychotropic medications. Also, we will add Abilify 2 mg every day and we will continue to monitor the medications ____ modification and follow up closely. JOB# [id number]
[2018-01-17] MEDS: Lactulose 10 Gm/15 mL 30mL UDC PO SCH ×2 (09:13→17:46)
[2018-01-17] MEDS: Multivitamin w/ Minerals Tab PO SCH (09:14)
[2018-01-17] MEDS: Cortisporin Otic Soln 10mL Bottle EACH EAR SCH ×4 (09:16→20:44)
[2018-01-17] MEDS: Hydrocodone/APAP 10 mg/325 mg Tab PO SCH ×2 (09:17→17:46)
[2018-01-17] MEDS: Aspirin 81mg Chewable Tab PO SCH (09:18)
[2018-01-17] MEDS: Multivitamin Tab PO SCH (09:19)
--- NOTE | 2018-01-17 18:10 | General Progress Note ---
Subjective - Review of Systems Service Date: 01/17/18 Subjective: awake and alert c/o joint pain laying in trendelenburg because of low BP, now 96/50 no complaint Objective - Physical Exam Vitals and I&O: Vital Signs Temp 98.6 F 01/17/18 15:57 Pulse 74 01/17/18 15:57 Resp 20 01/17/18 15:57 BP 90/59 01/17/18 15:57 Pulse Ox 96 01/17/18 15:57 Intake & Output 01/16/18 01/17/18 01/17/18 18:59 06:59 18:59 Output Total 300 Balance -300 Output: Urine 300 Stool 0 Active Medications: Current Medications Acetaminophen (Tylenol) 650 mg PO Q6HR PRN PRN Reason: Pain (Mild) Stop: 03/15/18 21:25 Acetaminophen/Hydrocodone Bitart ([place] 10 Mg/325 Mg) 1 tab PO BID [facility] Stop: 03/15/18 08:59 Last Admin: 01/17/18 17:46 Dose: Not Given Al Hydrox/Mg Hydrox/Simethicone (Maalox) 30 ml PO Q4HR PRN PRN Reason: GI DISTRESS Stop: 03/15/18 01:07 Aripiprazole (Abilify) 2 mg PO DAILY [facility]; Protocol Stop: 03/16/18 08:59 Last Admin: 01/17/18 09:15 Dose: 2 mg Aspirin (Aspirin Chewable) 81 mg PO DAILY [facility] Stop: 03/15/18 08:59 Last Admin: 01/17/18 09:18 Dose: 81 mg Bisacodyl (Dulcolax 10 Mg Supp) 10 mg RC DAILY PRN PRN Reason: Constipation Stop: 03/15/18 01:10 Docusate Sodium (Colace) 200 mg PO BID [facility] Stop: 03/15/18 08:59 Last Admin: 01/17/18 17:47 Dose: Not Given Furosemide (Lasix) 20 mg PO DAILY [facility] Stop: 03/15/18 08:59 Last Admin: 01/17/18 09:18 Dose: 20 mg Ibuprofen (Advil) 200 mg PO Q8H PRN PRN Reason: Pain (Mild) Stop: 03/15/18 07:14 Lactulose (Cephulac) 10 gm PO BID [facility] Stop: 03/15/18 08:59 Last Admin: 01/17/18 17:46 Dose: Not Given Latanoprost (Xalatan 0.005% Ophth Soln) 1 drop EACH EYE HS [facility] Stop: 03/15/18 20:59 Last Admin: 01/16/18 20:35 Dose: Not Given Levofloxacin (Levaquin) 250 mg PO DAILY [facility] Stop: 01/21/18 08:59 Last Admin: 01/17/18 09:16 Dose: 250 mg Lorazepam (Ativan) 0.5 mg PO Q4HR PRN; Protocol PRN Reason: Anxiety/Agitation Stop: 02/13/18 01:07 Magnesium Hydroxide (Milk Of Magnesia) 30 ml PO HS PRN PRN Reason: Constipation Memantine (Namenda) 5 mg PO DAILY [facility] Stop: 03/15/18 08:59 Last Admin: 01/17/18 09:14 Dose: 5 mg Multivitamins/Vitamin C (Theragran) 1 tab PO DAILY [facility] Stop: 03/15/18 08:59 Last Admin: 01/17/18 09:19 Dose: 1 tab Neomycin/Polymyxin/Hydrocortisone (Cortisporin Otic Soln) 2 drop EACH EAR QID [facility] Stop: 03/15/18 08:59 Last Admin: 01/17/18 17:45 Dose: 2 drop Zolpidem Tartrate (Ambien) 5 mg PO HS PRN PRN Reason: Insomnia Stop: 03/15/18 01:07 Last Admin: 01/14/18 21:14 Dose: 5 mg General: Alert, No acute distress HEENT: Atraumatic, PERRLA, EOMI Neck: Supple, JVD Cardiovascular: Regular rate, Normal S1, Normal S2 Lungs: Clear to auscultation Abdomen: Bowel sounds, Soft Assessment/Plan - Assessment Assessment: 1.UTI. 2.BPH. 3.DDD. 4.PSYCHOSIS. - Plan Plan: continue current treatment cont monitoring BP nurse instructed to call of BP worsens
--- NOTE | 2018-01-17 19:26 | Progress Notes ---
DATE: 01/17/2018 SUBJECTIVE: Chart reviewed and the patient interviewed. Also discussed the patient's condition with the staff and reviewed records and labs. The patient is still in a depressed mood and he is still isolative and withdrawn. The patient also is still feeling hopeless. He also is still interacting minimally with others. He also still wants to be left alone, although still has periods of agitation and irritability and needing redirections. ASSESSMENT: The patient is still depressed and agitated. TREATMENT PLAN: Continue to monitor behavior and his condition closely. Also, continue Namenda same dose. Also, continue to work on poor impulse control and continue evaluating the titration of Abilify and currently he is taking 2 mg every day and we will continue to follow up closely. JOB# [id number]
--- NOTE | 2018-01-18 06:59 | Progress Notes ---
DATE: 01/16/2018 Dr. Ernestine Minaya for Jeramie Montanez MD DATE OF PROGRESS NOTE: 01/16/2018 SUBJECTIVE: The patient interviewed. Case was discussed with staff, and chart reviewed. Per the staff, the patient has been isolative, irritable. The patient has been covering himself with a blanket and is unpredictable on the unit. The patient was interviewed this morning at bedside. The patient repeatedly states, "I am trying to get out of here." The patient is unable to really engage much with the interview. He appears to be disorganized. He is unable to engage appropriately with the interview. He has no plan for self-care. He seems to be mumbling to himself and he seems to be paranoid of others and isolating himself into his room. MENTAL STATUS EXAM: The patient appears stated age, but he is unkempt. He is lying in bed. He has poor eye contact. He is covering himself with a blanket. He appears to be paranoid of this provider. He seems to be internally preoccupied. He has poor insight, judgment and impulse control. He seems to be alert and oriented to his name and he understands he is in the hospital. His mood and affect appeared to be suspicious and also constricted. ASSESSMENT: A 67-year-old male admitted to [facility] for acute psychosis and agitation. The patient at this time continues to be irritable, unpredictable. He has no plan for self-care. He also seems to be internally preoccupied, also responding heavily to internal stimuli, also very paranoid at this time. PLAN: We will continue the patient acute hospitalization. Continue medication as prescribed. Appears the patient verbalizes, need to encourage the patient to participate in group and [facility]. The patient will have the social group worker and concern for discharge planning the primary discharge. JOB# [id number] JORDI
[2018-01-18] MEDS: Multivitamin w/ Minerals Tab PO SCH (10:00)
[2018-01-18] MEDS: Aspirin 81mg Chewable Tab PO SCH (10:00)
[2018-01-18] MEDS: Multivitamin Tab PO SCH (10:00)
[2018-01-18] MEDS: Cortisporin Otic Soln 10mL Bottle EACH EAR SCH ×4 (10:00→20:55)
[2018-01-18] MEDS: Lactulose 10 Gm/15 mL 30mL UDC PO SCH ×2 (10:00→17:49)
[2018-01-18] MEDS: Hydrocodone/APAP 10 mg/325 mg Tab PO SCH ×3 (10:00→18:09)
--- NOTE | 2018-01-18 15:21 | Progress Notes ---
DATE: 01/18/2018 The patient in the hospital, states he has no idea why he is here, confused, seen today, 01/18/2018. The patient stating he wants to leave, does not know where he is going to go, apparently coming from [facility], states he wants to leave here by car, by house, grandiosity, confusion, seemingly delusional. Medications were noted including dosages and frequencies. ASSESSMENT: The patient is currently in the hospital, history of dementia, transferred from [facility], irritability, anxiety, still psychotic, bizarre, making nonsensical statements. We will continue to monitor, titrate and adjust medications. Continue Abilify. I will be increasing his Abilify dosing today. JOB# [id number]
--- NOTE | 2018-01-18 20:34 | Internal Medicine Prog Note ---
Internal Medicine Subjective - Subjective Service Date: 01/18/18 Patient seen and examined:: with staff Patient is:: awake, verbal, in bed, talking Per staff patient has:: no adverse event Internal Medicine Objective - Physical Exam Vitals and I&O: Vital Signs Temp 98.0 F 01/18/18 14:00 Pulse 82 01/18/18 19:04 Resp 18 01/18/18 19:04 BP 104/71 01/18/18 14:00 Pulse Ox 91 01/18/18 19:04 Intake & Output 01/18/18 01/18/18 01/19/18 06:59 18:59 06:59 Intake Total 120 950 Balance 120 950 Intake: Oral 120 950 Other: # Voids 3 4 # Bowel Movements 0 0 Active Medications: Current Medications Acetaminophen (Tylenol) 650 mg PO Q6HR PRN PRN Reason: Pain (Mild) Stop: 03/15/18 21:25 Acetaminophen/Hydrocodone Bitart ([place] 10 Mg/325 Mg) 1 tab PO BID [facility] Stop: 03/15/18 08:59 Last Admin: 01/18/18 18:09 Dose: Not Given Al Hydrox/Mg Hydrox/Simethicone (Maalox) 30 ml PO Q4HR PRN PRN Reason: GI DISTRESS Stop: 03/15/18 01:07 Aripiprazole (Abilify) 5 mg PO DAILY [facility]; Protocol Stop: 03/20/18 08:59 Aspirin (Aspirin Chewable) 81 mg PO DAILY [facility] Stop: 03/15/18 08:59 Last Admin: 01/18/18 10:00 Dose: 81 mg Bisacodyl (Dulcolax 10 Mg Supp) 10 mg RC DAILY PRN PRN Reason: Constipation Stop: 03/15/18 01:10 Docusate Sodium (Colace) 200 mg PO BID [facility] Stop: 03/15/18 08:59 Last Admin: 01/18/18 17:51 Dose: 200 mg Furosemide (Lasix) 20 mg PO DAILY [facility] Stop: 03/15/18 08:59 Last Admin: 01/18/18 10:47 Dose: 20 mg Ibuprofen (Advil) 200 mg PO Q8H PRN PRN Reason: Pain (Mild) Stop: 03/15/18 07:14 Lactulose (Cephulac) 10 gm PO BID [facility] Stop: 03/15/18 08:59 Last Admin: 01/18/18 17:49 Dose: Not Given Latanoprost (Xalatan 0.005% Ophth Soln) 1 drop EACH EYE HS [facility]HER Stop: 03/15/18 20:59 Last Admin: 01/17/18 20:41 Dose: 1 drop Levofloxacin (Levaquin) 250 mg PO DAILY [facility] Stop: 01/21/18 08:59 Last Admin: 01/18/18 10:00 Dose: 250 mg Lorazepam (Ativan) 0.5 mg PO Q4HR PRN; Protocol PRN Reason: Anxiety/Agitation Stop: 02/13/18 01:07 Last Admin: 01/17/18 20:41 Dose: 0.5 mg Magnesium Hydroxide (Milk Of Magnesia) 30 ml PO HS PRN PRN Reason: Constipation Memantine (Namenda) 5 mg PO DAILY [facility] Stop: 03/15/18 08:59 Last Admin: 01/18/18 10:00 Dose: 5 mg Multivitamins/Vitamin C (Theragran) 1 tab PO DAILY [facility] Stop: 03/15/18 08:59 Last Admin: 01/18/18 10:00 Dose: Not Given Neomycin/Polymyxin/Hydrocortisone (Cortisporin Otic Soln) 2 drop EACH EAR QID [facility] Stop: 03/15/18 08:59 Last Admin: 01/18/18 17:50 Dose: 2 drop Zolpidem Tartrate (Ambien) 5 mg PO HS PRN PRN Reason: Insomnia Stop: 03/15/18 01:07 Last Admin: 01/17/18 20:41 Dose: 5 mg HEENT: NC/AT, PERRLA, EOMI, anicteric sclerae, throat clear Neck: No thyromegaly, +2 carotid pulse wo bruit Lungs: CTAB Cardiovascular: RRR, Normal S1, Normal S2 Abdomen: non-tender, non-distended Extremities: clear Neurological: no change Internal Medicine Assmt/Plan - Assessment Assessment: 1.BPH. 2.DDD. 3.PSYCHOSIS. - Plan Plan: CONTINUE ON CURRENT MEDICATION AND DIET.
[2018-01-19] MEDS: Lactulose 10 Gm/15 mL 30mL UDC PO SCH ×2 (08:51→17:19)
[2018-01-19] MEDS: Multivitamin w/ Minerals Tab PO SCH (08:51)
[2018-01-19] MEDS: Multivitamin Tab PO SCH (08:52)
[2018-01-19] MEDS: Hydrocodone/APAP 10 mg/325 mg Tab PO SCH ×2 (08:52→17:19)
[2018-01-19] MEDS: Aspirin 81mg Chewable Tab PO SCH (08:52)
[2018-01-19] MEDS: Cortisporin Otic Soln 10mL Bottle EACH EAR SCH ×4 (08:53→20:37)
--- NOTE | 2018-01-19 18:31 | Progress Notes ---
DATE: 01/19/2018 SUBJECTIVE: The patient is very confused, states that he is in the psychiatric hospital for shoulder pain and back pain, does not really know what is going on or why he is here, coming from [facility]. Noted to be confused, disoriented, mostly in his room, isolative, withdrawn, depressed, says a few words, irritable at times, per staff. No angry outbursts. Staff noting he has been following directions fairly well. Needing some prompting and redirection. Slept for about 8 hours. Medications were noted including dosages and frequencies. ASSESSMENT: The patient remains symptomatic, highly confused, sometimes irritable, mostly spending time by himself. Concerns for safety. PLAN: We will continue to monitor and titrate and adjust medications as tolerated. JOB# [id number]
--- NOTE | 2018-01-19 20:56 | Internal Medicine Prog Note ---
Internal Medicine Subjective - Subjective Service Date: 01/19/18 Patient seen and examined:: with staff Patient is:: awake, verbal, in bed, talking Per staff patient has:: no adverse event Internal Medicine Objective - Physical Exam Vitals and I&O: Vital Signs Temp 98.6 F 01/19/18 14:00 Pulse 82 01/19/18 14:00 Resp 20 01/19/18 14:00 BP 115/71 01/19/18 14:00 Pulse Ox 88 01/19/18 14:00 Intake & Output 01/19/18 01/19/18 01/20/18 06:59 18:59 06:59 Intake Total 120 Balance 120 Intake: Oral 120 Other: # Voids 3 # Bowel Movements 0 Active Medications: Current Medications Acetaminophen (Tylenol) 650 mg PO Q6HR PRN PRN Reason: Pain (Mild) Stop: 03/15/18 21:25 Acetaminophen/Hydrocodone Bitart ([place] 10 Mg/325 Mg) 1 tab PO BID [facility] Stop: 03/15/18 08:59 Last Admin: 01/19/18 17:19 Dose: 1 tab Al Hydrox/Mg Hydrox/Simethicone (Maalox) 30 ml PO Q4HR PRN PRN Reason: GI DISTRESS Stop: 03/15/18 01:07 Aripiprazole (Abilify) 5 mg PO DAILY [facility]; Protocol Stop: 03/20/18 08:59 Last Admin: 01/19/18 08:52 Dose: 5 mg Aspirin (Aspirin Chewable) 81 mg PO DAILY [facility] Stop: 03/15/18 08:59 Last Admin: 01/19/18 08:52 Dose: 81 mg Bisacodyl (Dulcolax 10 Mg Supp) 10 mg RC DAILY PRN PRN Reason: Constipation Stop: 03/15/18 01:10 Docusate Sodium (Colace) 200 mg PO BID [facility] Stop: 03/15/18 08:59 Last Admin: 01/19/18 17:17 Dose: 200 mg Furosemide (Lasix) 20 mg PO DAILY [facility] Stop: 03/15/18 08:59 Last Admin: 01/19/18 08:52 Dose: 20 mg Ibuprofen (Advil) 200 mg PO Q8H PRN PRN Reason: Pain (Mild) Stop: 03/15/18 07:14 Lactulose (Cephulac) 10 gm PO BID [facility] Stop: 03/15/18 08:59 Last Admin: 01/19/18 17:19 Dose: 10 gm Latanoprost (Xalatan 0.005% Ophth Soln) 1 drop EACH EYE HS [facility] Stop: 03/15/18 20:59 Last Admin: 01/19/18 20:38 Dose: 1 drop Levofloxacin (Levaquin) 250 mg PO DAILY [facility] Stop: 01/21/18 08:59 Last Admin: 01/19/18 08:52 Dose: 250 mg Lorazepam (Ativan) 0.5 mg PO Q4HR PRN; Protocol PRN Reason: Anxiety/Agitation Stop: 02/13/18 01:07 Last Admin: 01/19/18 20:36 Dose: 0.5 mg Magnesium Hydroxide (Milk Of Magnesia) 30 ml PO HS PRN PRN Reason: Constipation Memantine (Namenda) 5 mg PO DAILY [facility] Stop: 03/15/18 08:59 Last Admin: 01/19/18 08:52 Dose: 5 mg Multivitamins/Vitamin C (Theragran) 1 tab PO DAILY [facility] Stop: 03/15/18 08:59 Last Admin: 01/19/18 08:52 Dose: 1 tab Neomycin/Polymyxin/Hydrocortisone (Cortisporin Otic Soln) 2 drop EACH EAR QID [facility] Stop: 03/15/18 08:59 Last Admin: 01/19/18 20:37 Dose: 2 drop Zolpidem Tartrate (Ambien) 5 mg PO HS PRN PRN Reason: Insomnia Stop: 03/15/18 01:07 Last Admin: 01/17/18 20:41 Dose: 5 mg HEENT: NC/AT, PERRLA, EOMI, anicteric sclerae, throat clear Neck: No thyromegaly, +2 carotid pulse wo bruit Lungs: CTAB Cardiovascular: RRR, Normal S1, Normal S2 Abdomen: non-tender, non-distended Extremities: clear Neurological: no change Internal Medicine Assmt/Plan - Assessment Assessment: 1.BPH. 2.DDD. 3.PSYCHOSIS. - Plan Plan: CONTINUE ON CURRENT MEDICATION AND DIET. Nutritional Asmnt/Malnutr-PDOC - Dietary Evaluation Malnutrition Findings (Please click <Entered> for more info): Nutritional Asmnt/Malnutrition Start: 01/19/18 13: 46 Text: Status: Complete Freq: Protocol: Document 01/19/18 13:46 LCHENG (Rec: 01/19/18 13:52 LCHENG [email or web address]) Nutritional Asmnt/Malnutrition Patient General Information Nutritional Screening Low Risk Diagnosis psychosis Pertinent Medical Hx/Surgical Hx DJD, BPH, chronic back pain, psychosis, mild dementia Subjective Information Per EMR, PO intake 75-100%. Current Diet Order/ Nutrition Support regular, large portion Pertinent Medications colace, lasix, levaquin, theragran Pertinent Labs no labs Nutritional Hx/Data Height 1.78 m Height (Calculated Centimeters) 177.8 Current Weight (lbs) 68.492 kg Weight (Calculated Kilograms) 68.5 Weight (Calculated Grams) 25582.4 [place] Body Weight 166 Body Mass Index (BMI) 21.7 Weight Status Approriate GI Symptoms GI Symptoms None Last BM 01/14 Difficult in: None Skin Integrity/Comment: intact Current %PO Good (75-100%) Estimated Nutritional Goals BEE in Kcals: Using Current wt Calories/Kcals/Kg 25-30 Kcals Calculated 7639-0488 Protein: Using Current wt Protein g/k Protein Calculated 69 Fluid: ml 1725-2070ml (1ml/kcal) Nutritional Problem No current Nutrition Prob Problem N/A Malnutrition Alert Is there a minimum of two criteria No selected? Query Text:Check all the applicable criteria. A minimum of two criteria are recommended for diagnosis of either severe or non-severe malnutrition. Malnutrition Related to Morbid Obesity Malnutrition related to morbid obesity No Intervention/Recommendation Comments 1. Continue with regular diet as ordered. 2. Monitor PO intake, wt, labs and skin integrity 3. F/U as low risk in 7 days, 01/26 Expected Outcomes/Goals Expected Outcomes/Goals 1. PO intake to meet at least 75% of nutritional needs. 2. Wt stability, skin to remain intact, labs to approach WNL.
[2018-01-20] MEDS: Cortisporin Otic Soln 10mL Bottle EACH EAR SCH ×4 (09:05→21:30)
[2018-01-20] MEDS: Lactulose 10 Gm/15 mL 30mL UDC PO SCH ×2 (09:05→16:15)
[2018-01-20] MEDS: Hydrocodone/APAP 10 mg/325 mg Tab PO SCH ×2 (09:05→16:11)
[2018-01-20] MEDS: Multivitamin w/ Minerals Tab PO SCH (09:07)
[2018-01-20] MEDS: Multivitamin Tab PO SCH (09:07)
[2018-01-20] MEDS: Aspirin 81mg Chewable Tab PO SCH (09:07)
--- NOTE | 2018-01-20 21:48 | Internal Medicine Prog Note ---
Internal Medicine Subjective - Subjective Service Date: 01/20/18 Patient seen and examined:: with staff Patient is:: awake, verbal, in bed, talking Per staff patient has:: no adverse event Internal Medicine Objective - Physical Exam Vitals and I&O: Vital Signs Temp 97.3 F 01/20/18 20:00 Pulse 82 01/20/18 20:00 Resp 20 01/20/18 20:00 BP 105/60 01/20/18 20:00 Pulse Ox 94 01/20/18 20:00 Intake & Output 01/20/18 01/20/18 01/21/18 06:59 18:59 06:59 Intake Total 120 420 Balance 120 420 Intake: Oral 120 420 Other: # Voids 3 3 # Bowel Movements 0 Active Medications: Current Medications Acetaminophen (Tylenol) 650 mg PO Q6HR PRN PRN Reason: Pain (Mild) Stop: 03/15/18 21:25 Last Admin: 01/20/18 11:45 Dose: 650 mg Acetaminophen/Hydrocodone Bitart ([place] 10 Mg/325 Mg) 1 tab PO BID [facility] Stop: 03/15/18 08:59 Last Admin: 01/20/18 16:11 Dose: 1 tab Al Hydrox/Mg Hydrox/Simethicone (Maalox) 30 ml PO Q4HR PRN PRN Reason: GI DISTRESS Stop: 03/15/18 01:07 Aripiprazole (Abilify) 5 mg PO DAILY [facility]; Protocol Stop: 03/20/18 08:59 Last Admin: 01/20/18 09:06 Dose: 5 mg Aspirin (Aspirin Chewable) 81 mg PO DAILY [facility] Stop: 03/15/18 08:59 Last Admin: 01/20/18 09:07 Dose: 81 mg Bisacodyl (Dulcolax 10 Mg Supp) 10 mg RC DAILY PRN PRN Reason: Constipation Stop: 03/15/18 01:10 Docusate Sodium (Colace) 200 mg PO BID [facility] Stop: 03/15/18 08:59 Last Admin: 01/20/18 16:11 Dose: 200 mg Furosemide (Lasix) 20 mg PO DAILY [facility] Stop: 03/15/18 08:59 Last Admin: 01/20/18 09:07 Dose: 20 mg Ibuprofen (Advil) 200 mg PO Q8H PRN PRN Reason: Pain (Mild) Stop: 03/15/18 07:14 Lactulose (Cephulac) 10 gm PO BID [facility] Stop: 03/15/18 08:59 Last Admin: 01/20/18 16:15 Dose: Not Given Latanoprost (Xalatan 0.005% Ophth Soln) 1 drop EACH EYE HS [facility] Stop: 03/15/18 20:59 Last Admin: 01/20/18 21:30 Dose: 1 drop Levofloxacin (Levaquin) 250 mg PO DAILY [facility] Stop: 01/21/18 08:59 Last Admin: 01/20/18 09:06 Dose: 250 mg Lorazepam (Ativan) 0.5 mg PO Q4HR PRN; Protocol PRN Reason: Anxiety/Agitation Stop: 02/13/18 01:07 Last Admin: 01/19/18 20:36 Dose: 0.5 mg Magnesium Hydroxide (Milk Of Magnesia) 30 ml PO HS PRN PRN Reason: Constipation Memantine (Namenda) 5 mg PO DAILY [facility] Stop: 03/15/18 08:59 Last Admin: 01/20/18 09:06 Dose: 5 mg Multivitamins/Vitamin C (Theragran) 1 tab PO DAILY [facility] Stop: 03/15/18 08:59 Last Admin: 01/20/18 09:07 Dose: 1 tab Neomycin/Polymyxin/Hydrocortisone (Cortisporin Otic Soln) 2 drop EACH EAR QID [facility] Stop: 03/15/18 08:59 Last Admin: 01/20/18 21:30 Dose: 2 drop Zolpidem Tartrate (Ambien) 5 mg PO HS PRN PRN Reason: Insomnia Stop: 03/15/18 01:07 Last Admin: 01/17/18 20:41 Dose: 5 mg General: alert HEENT: NC/AT, PERRLA, EOMI, anicteric sclerae, throat clear Neck: No thyromegaly, +2 carotid pulse wo bruit Lungs: CTAB Cardiovascular: RRR, Normal S1, Normal S2 Abdomen: non-tender, non-distended Extremities: clear Neurological: no change Internal Medicine Assmt/Plan - Assessment Assessment: 1.BPH. 2.DDD. 3.PSYCHOSIS. - Plan Plan: CONTINUE ON CURRENT MEDICATION AND DIET. Nutritional Asmnt/Malnutr-PDOC - Dietary Evaluation Malnutrition Findings (Please click <Entered> for more info): Nutritional Asmnt/Malnutrition Start: 01/19/18 13: 46 Text: Status: Complete Freq: Protocol: Document 01/19/18 13:46 TORY (Rec: 01/19/18 13:52 TORY [email or web address]) Nutritional Asmnt/Malnutrition Patient General Information Nutritional Screening Low Risk Diagnosis psychosis Pertinent Medical Hx/Surgical Hx DJD, BPH, chronic back pain, psychosis, mild dementia Subjective Information Per EMR, PO intake 75-100%. Current Diet Order/ Nutrition Support regular, large portion Pertinent Medications colace, lasix, levaquin, theragran Pertinent Labs no labs Nutritional Hx/Data Height 1.78 m Height (Calculated Centimeters) 177.8 Current Weight (lbs) 68.492 kg Weight (Calculated Kilograms) 68.5 Weight (Calculated Grams) 46533.4 [place] Body Weight 166 Body Mass Index (BMI) 21.7 Weight Status Approriate GI Symptoms GI Symptoms None Last BM 01/14 Difficult in: None Skin Integrity/Comment: intact Current %PO Good (75-100%) Estimated Nutritional Goals BEE in Kcals: Using Current wt Calories/Kcals/Kg 25-30 Kcals Calculated 5562-3786 Protein: Using Current wt Protein g/k Protein Calculated 69 Fluid: ml 1725-2070ml (1ml/kcal) Nutritional Problem No current Nutrition Prob Problem N/A Malnutrition Alert Is there a minimum of two criteria No selected? Query Text:Check all the applicable criteria. A minimum of two criteria are recommended for diagnosis of either severe or non-severe malnutrition. Malnutrition Related to Morbid Obesity Malnutrition related to morbid obesity No Intervention/Recommendation Comments 1. Continue with regular diet as ordered. 2. Monitor PO intake, wt, labs and skin integrity 3. F/U as low risk in 7 days, 01/26 Expected Outcomes/Goals Expected Outcomes/Goals 1. PO intake to meet at least 75% of nutritional needs. 2. Wt stability, skin to remain intact, labs to approach WNL.
[2018-01-21] MEDS: Cortisporin Otic Soln 10mL Bottle EACH EAR SCH ×4 (09:20→21:13)
[2018-01-21] MEDS: Hydrocodone/APAP 10 mg/325 mg Tab PO SCH ×2 (09:20→17:52)
[2018-01-21] MEDS: Multivitamin Tab PO SCH (09:21)
[2018-01-21] MEDS: Multivitamin w/ Minerals Tab PO SCH (09:22)
[2018-01-21] MEDS: Lactulose 10 Gm/15 mL 30mL UDC PO SCH ×2 (09:29→17:42)
[2018-01-21] MEDS: Aspirin 81mg Chewable Tab PO SCH (09:44)
--- NOTE | 2018-01-21 22:19 | Internal Medicine Prog Note ---
Internal Medicine Subjective - Subjective Service Date: 01/21/18 Patient seen and examined:: with staff Patient is:: awake, verbal, in bed, talking Per staff patient has:: no adverse event Internal Medicine Objective - Physical Exam Vitals and I&O: Vital Signs Temp 98.5 F 01/21/18 14:00 Pulse 84 01/21/18 14:16 Resp 18 01/21/18 14:16 BP 103/73 01/21/18 14:00 Pulse Ox 93 01/21/18 14:16 Intake & Output 01/21/18 01/21/18 01/22/18 06:59 18:59 06:59 Intake Total 120 1350 Balance 120 1350 Intake: Oral 120 1350 Other: # Voids 3 3 # Bowel Movements 0 Active Medications: Current Medications Acetaminophen (Tylenol) 650 mg PO Q6HR PRN PRN Reason: Pain (Mild) Stop: 03/15/18 21:25 Last Admin: 01/20/18 11:45 Dose: 650 mg Al Hydrox/Mg Hydrox/Simethicone (Maalox) 30 ml PO Q4HR PRN PRN Reason: GI DISTRESS Stop: 03/15/18 01:07 Aripiprazole (Abilify) 5 mg PO DAILY [facility]; Protocol Stop: 03/20/18 08:59 Last Admin: 01/21/18 09:18 Dose: 5 mg Aspirin (Aspirin Chewable) 81 mg PO DAILY [facility] Stop: 03/15/18 08:59 Last Admin: 01/21/18 09:44 Dose: 81 mg Bisacodyl (Dulcolax 10 Mg Supp) 10 mg RC DAILY PRN PRN Reason: Constipation Stop: 03/15/18 01:10 Docusate Sodium (Colace) 200 mg PO BID [facility] Stop: 03/15/18 08:59 Last Admin: 01/21/18 17:52 Dose: 200 mg Furosemide (Lasix) 20 mg PO DAILY [facility] Stop: 03/15/18 08:59 Last Admin: 01/21/18 09:45 Dose: 20 mg Ibuprofen (Advil) 200 mg PO Q8H PRN PRN Reason: Pain (Mild) Stop: 03/15/18 07:14 Last Admin: 01/21/18 21:20 Dose: 200 mg Lactulose (Cephulac) 10 gm PO BID [facility] Stop: 03/15/18 08:59 Last Admin: 01/21/18 17:42 Dose: Not Given Latanoprost (Xalatan 0.005% Ophth Soln) 1 drop EACH EYE HS [facility] Stop: 03/15/18 20:59 Last Admin: 01/21/18 21:13 Dose: 1 drop Lorazepam (Ativan) 0.5 mg PO Q4HR PRN; Protocol PRN Reason: Anxiety/Agitation Stop: 02/13/18 01:07 Last Admin: 01/21/18 21:10 Dose: 0.5 mg Magnesium Hydroxide (Milk Of Magnesia) 30 ml PO HS PRN PRN Reason: Constipation Memantine (Namenda) 5 mg PO DAILY [facility] Stop: 03/15/18 08:59 Last Admin: 01/21/18 09:21 Dose: 5 mg Multivitamins/Vitamin C (Theragran) 1 tab PO DAILY [facility] Stop: 03/15/18 08:59 Last Admin: 01/21/18 09:21 Dose: 1 tab Neomycin/Polymyxin/Hydrocortisone (Cortisporin Otic Soln) 2 drop EACH EAR QID [facility] Stop: 03/15/18 08:59 Last Admin: 01/21/18 21:13 Dose: 2 drop Zolpidem Tartrate (Ambien) 5 mg PO HS PRN PRN Reason: Insomnia Stop: 03/15/18 01:07 Last Admin: 01/21/18 21:10 Dose: 5 mg General: alert HEENT: NC/AT, PERRLA, EOMI, anicteric sclerae, throat clear Neck: No thyromegaly, +2 carotid pulse wo bruit Lungs: CTAB Cardiovascular: RRR, Normal S1, Normal S2 Abdomen: non-tender, non-distended Extremities: clear Neurological: no change Internal Medicine Assmt/Plan - Assessment Assessment: 1.BPH. 2.DDD. 3.PSYCHOSIS. - Plan Plan: CONTINUE ON CURRENT MEDICATION AND DIET. Nutritional Asmnt/Malnutr-PDOC - Dietary Evaluation Malnutrition Findings (Please click <Entered> for more info): Nutritional Asmnt/Malnutrition Start: 01/19/18 13: 46 Text: Status: Complete Freq: Protocol: Document 01/19/18 13:46 TOYR (Rec: 01/19/18 13:52 TORY [email or web address]) Nutritional Asmnt/Malnutrition Patient General Information Nutritional Screening Low Risk Diagnosis psychosis Pertinent Medical Hx/Surgical Hx DJD, BPH, chronic back pain, psychosis, mild dementia Subjective Information Per EMR, PO intake 75-100%. Current Diet Order/ Nutrition Support regular, large portion Pertinent Medications colace, lasix, levaquin, theragran Pertinent Labs no labs Nutritional Hx/Data Height 1.78 m Height (Calculated Centimeters) 177.8 Current Weight (lbs) 68.492 kg Weight (Calculated Kilograms) 68.5 Weight (Calculated Grams) 13888.4 [place] Body Weight 166 Body Mass Index (BMI) 21.7 Weight Status Approriate GI Symptoms GI Symptoms None Last BM 01/14 Difficult in: None Skin Integrity/Comment: intact Current %PO Good (75-100%) Estimated Nutritional Goals BEE in Kcals: Using Current wt Calories/Kcals/Kg 25-30 Kcals Calculated 9482-2855 Protein: Using Current wt Protein g/k Protein Calculated 69 Fluid: ml 1725-2070ml (1ml/kcal) Nutritional Problem No current Nutrition Prob Problem N/A Malnutrition Alert Is there a minimum of two criteria No selected? Query Text:Check all the applicable criteria. A minimum of two criteria are recommended for diagnosis of either severe or non-severe malnutrition. Malnutrition Related to Morbid Obesity Malnutrition related to morbid obesity No Intervention/Recommendation Comments 1. Continue with regular diet as ordered. 2. Monitor PO intake, wt, labs and skin integrity 3. F/U as low risk in 7 days, 01/26 Expected Outcomes/Goals Expected Outcomes/Goals 1. PO intake to meet at least 75% of nutritional needs. 2. Wt stability, skin to remain intact, labs to approach WNL.
[2018-01-22] MEDS: Aspirin 81mg Chewable Tab PO SCH (08:41)
[2018-01-22] MEDS: Multivitamin Tab PO SCH (08:41)
[2018-01-22] MEDS: Multivitamin w/ Minerals Tab PO SCH (08:41)
[2018-01-22] MEDS: Cortisporin Otic Soln 10mL Bottle EACH EAR SCH ×4 (08:43→21:31)
[2018-01-22] MEDS: Lactulose 10 Gm/15 mL 30mL UDC PO SCH ×2 (08:43→17:25)
[2018-01-22] MEDS: Hydrocodone/APAP 10 mg/325 mg Tab PO SCH (17:24)
--- NOTE | 2018-01-22 22:54 | Internal Medicine Prog Note ---
Internal Medicine Subjective - Subjective Service Date: 01/22/18 Patient seen and examined:: with staff Patient is:: awake, verbal, in bed, talking Per staff patient has:: no adverse event Internal Medicine Objective - Physical Exam Vitals and I&O: Vital Signs Temp 98.8 F 01/22/18 14:00 Pulse 77 01/22/18 19:47 Resp 20 01/22/18 20:00 BP 100/75 01/22/18 14:00 Pulse Ox 92 01/22/18 19:47 Intake & Output 01/22/18 01/22/18 01/23/18 06:59 18:59 06:59 Intake Total 500 950 Balance 500 950 Intake: Oral 500 950 Other: # Voids 3 4 # Bowel Movements 0 1 Active Medications: Current Medications Acetaminophen (Tylenol) 650 mg PO Q6HR PRN PRN Reason: Pain (Mild) Stop: 03/15/18 21:25 Last Admin: 01/20/18 11:45 Dose: 650 mg Acetaminophen/Hydrocodone Bitart ([place] 10 Mg/325 Mg) 1 tab PO BID [facility] Stop: 03/23/18 16:59 Last Admin: 01/22/18 17:24 Dose: 1 tab Al Hydrox/Mg Hydrox/Simethicone (Maalox) 30 ml PO Q4HR PRN PRN Reason: GI DISTRESS Stop: 03/15/18 01:07 Aripiprazole (Abilify) 5 mg PO DAILY [facility]; Protocol Stop: 03/20/18 08:59 Last Admin: 01/22/18 08:41 Dose: 5 mg Aspirin (Aspirin Chewable) 81 mg PO DAILY [facility] Stop: 03/15/18 08:59 Last Admin: 01/22/18 08:41 Dose: 81 mg Bisacodyl (Dulcolax 10 Mg Supp) 10 mg RC DAILY PRN PRN Reason: Constipation Stop: 03/15/18 01:10 Docusate Sodium (Colace) 200 mg PO BID [facility] Stop: 03/15/18 08:59 Last Admin: 01/22/18 17:24 Dose: 200 mg Furosemide (Lasix) 20 mg PO DAILY [facility] Stop: 03/15/18 08:59 Last Admin: 01/22/18 08:40 Dose: Not Given Ibuprofen (Advil) 200 mg PO Q8H PRN PRN Reason: Pain (Mild) Stop: 03/15/18 07:14 Last Admin: 01/21/18 21:20 Dose: 200 mg Lactulose (Cephulac) 10 gm PO BID [facility] Stop: 03/15/18 08:59 Last Admin: 01/22/18 17:25 Dose: 10 gm Latanoprost (Xalatan 0.005% Ophth Soln) 1 drop EACH EYE HS [facility] Stop: 03/15/18 20:59 Last Admin: 01/22/18 21:31 Dose: 1 drop Lorazepam (Ativan) 0.5 mg PO Q4HR PRN; Protocol PRN Reason: Anxiety/Agitation Stop: 02/13/18 01:07 Last Admin: 01/21/18 21:10 Dose: 0.5 mg Magnesium Hydroxide (Milk Of Magnesia) 30 ml PO HS PRN PRN Reason: Constipation Memantine (Namenda) 5 mg PO DAILY [facility] Stop: 03/15/18 08:59 Last Admin: 01/22/18 08:41 Dose: 5 mg Multivitamins/Vitamin C (Theragran) 1 tab PO DAILY [facility] Stop: 03/15/18 08:59 Last Admin: 01/22/18 08:41 Dose: 1 tab Neomycin/Polymyxin/Hydrocortisone (Cortisporin Otic Soln) 2 drop EACH EAR QID [facility] Stop: 03/15/18 08:59 Last Admin: 01/22/18 21:31 Dose: 2 drop Zolpidem Tartrate (Ambien) 5 mg PO HS PRN PRN Reason: Insomnia Stop: 03/15/18 01:07 Last Admin: 01/22/18 21:31 Dose: 5 mg General: alert HEENT: NC/AT, PERRLA, EOMI, anicteric sclerae, throat clear Neck: No thyromegaly, +2 carotid pulse wo bruit Lungs: CTAB Cardiovascular: RRR, Normal S1, Normal S2 Abdomen: non-tender, non-distended Extremities: clear Neurological: no change Internal Medicine Assmt/Plan - Assessment Assessment: 1.BPH. 2.DDD. 3.PSYCHOSIS. - Plan Plan: CONTINUE ON CURRENT MEDICATION AND DIET. Nutritional Asmnt/Malnutr-PDOC - Dietary Evaluation Malnutrition Findings (Please click <Entered> for more info): Nutritional Asmnt/Malnutrition Start: 01/19/18 13: 46 Text: Status: Complete Freq: Protocol: Document 01/19/18 13:46 LCHENG (Rec: 01/19/18 13:52 LCHENG [email or web address]) Nutritional Asmnt/Malnutrition Patient General Information Nutritional Screening Low Risk Diagnosis psychosis Pertinent Medical Hx/Surgical Hx DJD, BPH, chronic back pain, psychosis, mild dementia Subjective Information Per EMR, PO intake 75-100%. Current Diet Order/ Nutrition Support regular, large portion Pertinent Medications colace, lasix, levaquin, theragran Pertinent Labs no labs Nutritional Hx/Data Height 1.78 m Height (Calculated Centimeters) 177.8 Current Weight (lbs) 68.492 kg Weight (Calculated Kilograms) 68.5 Weight (Calculated Grams) 90684.4 [place] Body Weight 166 Body Mass Index (BMI) 21.7 Weight Status Approriate GI Symptoms GI Symptoms None Last BM 01/14 Difficult in: None Skin Integrity/Comment: intact Current %PO Good (75-100%) Estimated Nutritional Goals BEE in Kcals: Using Current wt Calories/Kcals/Kg 25-30 Kcals Calculated 4366-2538 Protein: Using Current wt Protein g/k Protein Calculated 69 Fluid: ml 1725-2070ml (1ml/kcal) Nutritional Problem No current Nutrition Prob Problem N/A Malnutrition Alert Is there a minimum of two criteria No selected? Query Text:Check all the applicable criteria. A minimum of two criteria are recommended for diagnosis of either severe or non-severe malnutrition. Malnutrition Related to Morbid Obesity Malnutrition related to morbid obesity No Intervention/Recommendation Comments 1. Continue with regular diet as ordered. 2. Monitor PO intake, wt, labs and skin integrity 3. F/U as low risk in 7 days, 01/26 Expected Outcomes/Goals Expected Outcomes/Goals 1. PO intake to meet at least 75% of nutritional needs. 2. Wt stability, skin to remain intact, labs to approach WNL.
[2018-01-23] MEDS: Lactulose 10 Gm/15 mL 30mL UDC PO SCH ×3 (09:03→16:48)
[2018-01-23] MEDS: Hydrocodone/APAP 10 mg/325 mg Tab PO SCH ×2 (09:14→16:44)
[2018-01-23] MEDS: Multivitamin w/ Minerals Tab PO SCH (09:15)
[2018-01-23] MEDS: Aspirin 81mg Chewable Tab PO SCH (09:15)
[2018-01-23] MEDS: Cortisporin Otic Soln 10mL Bottle EACH EAR SCH ×4 (09:21→21:35)
[2018-01-23] MEDS: Multivitamin Tab PO SCH (09:25)
--- NOTE | 2018-01-23 19:44 | Internal Medicine Prog Note ---
Internal Medicine Subjective - Subjective Service Date: 01/23/18 Patient seen and examined:: without staff Patient is:: awake, verbal, in bed, talking Per staff patient has:: no adverse event Internal Medicine Objective - Physical Exam Vitals and I&O: Vital Signs Temp 97.6 F 01/23/18 14:00 Pulse 86 01/23/18 14:00 Resp 20 01/23/18 14:00 BP 100/60 01/23/18 14:00 Pulse Ox 98 01/23/18 14:00 Intake & Output 01/23/18 01/23/18 01/24/18 06:59 18:59 06:59 Intake Total 960 Balance 960 Intake: Oral 960 Other: # Voids 3 # Bowel Movements 1 Active Medications: Current Medications Acetaminophen (Tylenol) 650 mg PO Q6HR PRN PRN Reason: Pain (Mild) Stop: 03/15/18 21:25 Last Admin: 01/20/18 11:45 Dose: 650 mg Acetaminophen/Hydrocodone Bitart ([place] 10 Mg/325 Mg) 1 tab PO BID [facility] Stop: 03/23/18 16:59 Last Admin: 01/23/18 16:44 Dose: 1 tab Al Hydrox/Mg Hydrox/Simethicone (Maalox) 30 ml PO Q4HR PRN PRN Reason: GI DISTRESS Stop: 03/15/18 01:07 Aripiprazole (Abilify) 5 mg PO DAILY [facility]; Protocol Stop: 03/20/18 08:59 Last Admin: 01/23/18 09:15 Dose: 5 mg Aspirin (Aspirin Chewable) 81 mg PO DAILY [facility] Stop: 03/15/18 08:59 Last Admin: 01/23/18 09:15 Dose: 81 mg Bisacodyl (Dulcolax 10 Mg Supp) 10 mg RC DAILY PRN PRN Reason: Constipation Stop: 03/15/18 01:10 Docusate Sodium (Colace) 200 mg PO BID [facility] Stop: 03/15/18 08:59 Last Admin: 01/23/18 16:45 Dose: 200 mg Furosemide (Lasix) 20 mg PO DAILY [facility] Stop: 03/15/18 08:59 Last Admin: 01/23/18 09:17 Dose: Not Given Ibuprofen (Advil) 200 mg PO Q8H PRN PRN Reason: Pain (Mild) Stop: 03/15/18 07:14 Last Admin: 01/21/18 21:20 Dose: 200 mg Lactulose (Cephulac) 10 gm PO BID [facility] Stop: 03/15/18 08:59 Last Admin: 01/23/18 16:48 Dose: 10 gm Latanoprost (Xalatan 0.005% Ophth Soln) 1 drop EACH EYE HS [facility] Stop: 03/15/18 20:59 Last Admin: 01/22/18 21:31 Dose: 1 drop Lorazepam (Ativan) 0.5 mg PO Q4HR PRN; Protocol PRN Reason: Anxiety/Agitation Stop: 02/13/18 01:07 Last Admin: 01/21/18 21:10 Dose: 0.5 mg Magnesium Hydroxide (Milk Of Magnesia) 30 ml PO HS PRN PRN Reason: Constipation Memantine (Namenda) 5 mg PO DAILY [facility] Stop: 03/15/18 08:59 Last Admin: 01/23/18 09:15 Dose: 5 mg Multivitamins/Vitamin C (Theragran) 1 tab PO DAILY [facility] Stop: 03/15/18 08:59 Last Admin: 01/23/18 09:25 Dose: 1 tab Neomycin/Polymyxin/Hydrocortisone (Cortisporin Otic Soln) 2 drop EACH EAR QID [facility] Stop: 03/15/18 08:59 Last Admin: 01/23/18 16:46 Dose: 2 drop Zolpidem Tartrate (Ambien) 5 mg PO HS PRN PRN Reason: Insomnia Stop: 03/15/18 01:07 Last Admin: 01/22/18 21:31 Dose: 5 mg General: alert, demented HEENT: NC/AT, PERRLA, EOMI, anicteric sclerae, throat clear Neck: No thyromegaly, +2 carotid pulse wo bruit Lungs: CTAB Cardiovascular: RRR, Normal S1, Normal S2 Abdomen: non-tender, non-distended Extremities: clear Neurological: no change Internal Medicine Assmt/Plan - Assessment Assessment: 1.BPH. 2.DDD. 3.PSYCHOSIS. - Plan Plan: CONTINUE ON CURRENT MEDICATION AND DIET. Nutritional Asmnt/Malnutr-PDOC - Dietary Evaluation Malnutrition Findings (Please click <Entered> for more info): Nutritional Asmnt/Malnutrition Start: 01/19/18 13: 46 Text: Status: Complete Freq: Protocol: Document 01/19/18 13:46 LCHENG (Rec: 01/19/18 13:52 LCHENG [email or web address]) Nutritional Asmnt/Malnutrition Patient General Information Nutritional Screening Low Risk Diagnosis psychosis Pertinent Medical Hx/Surgical Hx DJD, BPH, chronic back pain, psychosis, mild dementia Subjective Information Per EMR, PO intake 75-100%. Current Diet Order/ Nutrition Support regular, large portion Pertinent Medications colace, lasix, levaquin, theragran Pertinent Labs no labs Nutritional Hx/Data Height 1.78 m Height (Calculated Centimeters) 177.8 Current Weight (lbs) 68.492 kg Weight (Calculated Kilograms) 68.5 Weight (Calculated Grams) 61311.4 [place] Body Weight 166 Body Mass Index (BMI) 21.7 Weight Status Approriate GI Symptoms GI Symptoms None Last BM 01/14 Difficult in: None Skin Integrity/Comment: intact Current %PO Good (75-100%) Estimated Nutritional Goals BEE in Kcals: Using Current wt Calories/Kcals/Kg 25-30 Kcals Calculated 1937-6580 Protein: Using Current wt Protein g/k Protein Calculated 69 Fluid: ml 1725-2070ml (1ml/kcal) Nutritional Problem No current Nutrition Prob Problem N/A Malnutrition Alert Is there a minimum of two criteria No selected? Query Text:Check all the applicable criteria. A minimum of two criteria are recommended for diagnosis of either severe or non-severe malnutrition. Malnutrition Related to Morbid Obesity Malnutrition related to morbid obesity No Intervention/Recommendation Comments 1. Continue with regular diet as ordered. 2. Monitor PO intake, wt, labs and skin integrity 3. F/U as low risk in 7 days, 01/26 Expected Outcomes/Goals Expected Outcomes/Goals 1. PO intake to meet at least 75% of nutritional needs. 2. Wt stability, skin to remain intact, labs to approach WNL.
--- NOTE | 2018-01-23 22:31 | Progress Notes ---
DATE: 01/23/[address] Montanez. Case was discussed with staff of the patient, reviewed records. This is a 67-year-old male, who was admitted on 01/14/2018 because of agitation and aggressive behavior, he came from [facility] because of irritability ____, extremely agitated and angry with a history of dementia. The patient continues to be confused, easily agitated, and cannot make safe plan for self-care. Continues to be unpredictable, impulsive, disengaged. He is compliant with the medication with no side effects, no sedation, no nausea. He is on Namenda 5 mg daily, Abilify 5 mg daily with no side effects, no sedation, no nausea, no extrapyramidal symptoms and we will continue to work with the patient in group therapy, milieu therapy, and adjust the medication as needed. JOB# [id number]
[2018-01-24] MEDS: Lactulose 10 Gm/15 mL 30mL UDC PO SCH ×2 (09:30→16:51)
[2018-01-24] MEDS: Aspirin 81mg Chewable Tab PO SCH (09:31)
[2018-01-24] MEDS: Multivitamin Tab PO SCH (09:31)
[2018-01-24] MEDS: Hydrocodone/APAP 10 mg/325 mg Tab PO SCH ×2 (09:31→16:49)
[2018-01-24] MEDS: Multivitamin w/ Minerals Tab PO SCH (09:31)
[2018-01-24] MEDS: Cortisporin Otic Soln 10mL Bottle EACH EAR SCH ×4 (10:47→20:44)
--- NOTE | 2018-01-24 13:16 | Internal Medicine Prog Note ---
Internal Medicine Subjective - Subjective Service Date: 01/24/18 Patient seen and examined:: with staff Patient is:: awake, verbal, in bed, talking Per staff patient has:: no adverse event Internal Medicine Objective - Physical Exam Vitals and I&O: Vital Signs Temp 97.4 F 01/23/18 20:00 Pulse 82 01/23/18 20:03 Resp 20 01/23/18 20:03 BP 131/81 01/24/18 09:31 Pulse Ox 89 01/23/18 20:03 Intake & Output 01/23/18 01/24/18 01/24/18 18:59 06:59 18:59 Intake Total 960 200 Balance 960 200 Intake: Oral 960 200 Other: # Voids 3 2 # Bowel Movements 1 Active Medications: Current Medications Acetaminophen (Tylenol) 650 mg PO Q6HR PRN PRN Reason: Pain (Mild) Stop: 03/15/18 21:25 Last Admin: 01/20/18 11:45 Dose: 650 mg Acetaminophen/Hydrocodone Bitart ([place] 10 Mg/325 Mg) 1 tab PO BID [facility] Stop: 03/23/18 16:59 Last Admin: 01/24/18 09:31 Dose: 1 tab Al Hydrox/Mg Hydrox/Simethicone (Maalox) 30 ml PO Q4HR PRN PRN Reason: GI DISTRESS Stop: 03/15/18 01:07 Aripiprazole (Abilify) 5 mg PO DAILY [facility]; Protocol Stop: 03/20/18 08:59 Last Admin: 01/24/18 09:31 Dose: 5 mg Aspirin (Aspirin Chewable) 81 mg PO DAILY [facility] Stop: 03/15/18 08:59 Last Admin: 01/24/18 09:31 Dose: 81 mg Bisacodyl (Dulcolax 10 Mg Supp) 10 mg RC DAILY PRN PRN Reason: Constipation Stop: 03/15/18 01:10 Docusate Sodium (Colace) 200 mg PO BID [facility] Stop: 03/15/18 08:59 Last Admin: 01/24/18 09:32 Dose: 200 mg Furosemide (Lasix) 20 mg PO DAILY [facility] Stop: 03/15/18 08:59 Last Admin: 01/24/18 09:31 Dose: 20 mg Ibuprofen (Advil) 200 mg PO Q8H PRN PRN Reason: Pain (Mild) Stop: 03/15/18 07:14 Last Admin: 01/21/18 21:20 Dose: 200 mg Lactulose (Cephulac) 10 gm PO BID [facility] Stop: 03/15/18 08:59 Last Admin: 01/24/18 09:30 Dose: Not Given Latanoprost (Xalatan 0.005% Ophth Soln) 1 drop EACH EYE HS [facility] Stop: 03/15/18 20:59 Last Admin: 01/23/18 21:35 Dose: 1 drop Lorazepam (Ativan) 0.5 mg PO Q4HR PRN; Protocol PRN Reason: Anxiety/Agitation Stop: 02/13/18 01:07 Last Admin: 01/21/18 21:10 Dose: 0.5 mg Magnesium Hydroxide (Milk Of Magnesia) 30 ml PO HS PRN PRN Reason: Constipation Memantine (Namenda) 5 mg PO DAILY [facility] Stop: 03/15/18 08:59 Last Admin: 01/24/18 09:31 Dose: 5 mg Multivitamins/Vitamin C (Theragran) 1 tab PO DAILY [facility] Stop: 03/15/18 08:59 Last Admin: 01/24/18 09:31 Dose: 1 tab Neomycin/Polymyxin/Hydrocortisone (Cortisporin Otic Soln) 2 drop EACH EAR QID [facility] Stop: 03/15/18 08:59 Last Admin: 01/24/18 12:22 Dose: 2 drop Zolpidem Tartrate (Ambien) 5 mg PO HS PRN PRN Reason: Insomnia Stop: 03/15/18 01:07 Last Admin: 01/22/18 21:31 Dose: 5 mg General: alert, demented HEENT: NC/AT, PERRLA, EOMI, anicteric sclerae, throat clear Neck: No thyromegaly, +2 carotid pulse wo bruit Lungs: CTAB Cardiovascular: RRR, Normal S1, Normal S2 Abdomen: non-tender, non-distended Extremities: clear Neurological: no change Internal Medicine Assmt/Plan - Assessment Assessment: 1.BPH. 2.DDD. 3.PSYCHOSIS. - Plan Plan: CONTINUE ON CURRENT MEDICATION AND DIET. Nutritional Asmnt/Malnutr-PDOC - Dietary Evaluation Malnutrition Findings (Please click <Entered> for more info): Nutritional Asmnt/Malnutrition Start: 01/19/18 13: 46 Text: Status: Complete Freq: Protocol: Document 01/19/18 13:46 TORY (Rec: 01/19/18 13:52 TORY [email or web address]) Nutritional Asmnt/Malnutrition Patient General Information Nutritional Screening Low Risk Diagnosis psychosis Pertinent Medical Hx/Surgical Hx DJD, BPH, chronic back pain, psychosis, mild dementia Subjective Information Per EMR, PO intake 75-100%. Current Diet Order/ Nutrition Support regular, large portion Pertinent Medications colace, lasix, levaquin, theragran Pertinent Labs no labs Nutritional Hx/Data Height 1.78 m Height (Calculated Centimeters) 177.8 Current Weight (lbs) 68.492 kg Weight (Calculated Kilograms) 68.5 Weight (Calculated Grams) 56584.4 [place] Body Weight 166 Body Mass Index (BMI) 21.7 Weight Status Approriate GI Symptoms GI Symptoms None Last BM 01/14 Difficult in: None Skin Integrity/Comment: intact Current %PO Good (75-100%) Estimated Nutritional Goals BEE in Kcals: Using Current wt Calories/Kcals/Kg 25-30 Kcals Calculated 1001-4021 Protein: Using Current wt Protein g/k Protein Calculated 69 Fluid: ml 1725-2070ml (1ml/kcal) Nutritional Problem No current Nutrition Prob Problem N/A Malnutrition Alert Is there a minimum of two criteria No selected? Query Text:Check all the applicable criteria. A minimum of two criteria are recommended for diagnosis of either severe or non-severe malnutrition. Malnutrition Related to Morbid Obesity Malnutrition related to morbid obesity No Intervention/Recommendation Comments 1. Continue with regular diet as ordered. 2. Monitor PO intake, wt, labs and skin integrity 3. F/U as low risk in 7 days, 01/26 Expected Outcomes/Goals Expected Outcomes/Goals 1. PO intake to meet at least 75% of nutritional needs. 2. Wt stability, skin to remain intact, labs to approach WNL.
--- NOTE | 2018-01-24 17:19 | Progress Notes ---
DATE: SUBJECTIVE: Chart reviewed and the patient interviewed. Discussed the patient's condition with the staff and reviewed records and labs. The patient is still depressed, isolative, and withdrawn. Also, interacting minimally with peers and with others. The patient also wants to be left alone. Also easily agitated at times because of his depression and his desire to be left alone. Otherwise, the patient is compliant with taking his medications with no side effects of medications. ASSESSMENT: The patient is still confused and is still depressed. TREATMENT PLAN: Continue monitoring his behavior and his condition closely. Also, continue working on his ineffective coping and followup. JOB# [id number]
--- NOTE | 2018-01-24 18:18 | Progress Notes ---
DATE: SUBJECTIVE: Chart reviewed and the patient interviewed. Also discussed the patient's condition with the staff and reviewed records and labs. The patient continued to be in a depressed mood. Sad affect. The patient also is still withdrawn and interacting minimally with peers and with others. The patient also is still having episodes of crying. Otherwise, the patient is compliant with taking his medications with no side effect. Also, he seems to be less depressed. ASSESSMENT: The patient is still in a depressed mood and needs close monitoring. TREATMENT PLAN: Continue to monitor his behavior and condition closely. Also, continue to work on his ineffective coping and follow up closely. [facility]# [id number]
--- NOTE | 2018-01-24 22:06 | Progress Notes ---
DATE: 01/24/[address] Montanez. SUBJECTIVE: Case was discussed with staff of the patient, reviewed records. The patient continues to be confused. He is not sure why he is here exactly, what the reason that led to him coming here, does not know why he is here. He continues to be easily agitated and angry. He is demented, confused, unable to make safe plan for self-care, impulsive, unpredictable. He is compliant with the medication with no side effects, no sedation, no nausea, and no extrapyramidal symptoms. We will continue to work with the patient in group therapy, milieu therapy, and adjust the medications as needed. JOB# [id number]
[2018-01-25] MEDS: Lactulose 10 Gm/15 mL 30mL UDC PO SCH (09:22)
[2018-01-25] MEDS: Aspirin 81mg Chewable Tab PO SCH (09:23)
[2018-01-25] MEDS: Multivitamin Tab PO SCH (09:23)
[2018-01-25] MEDS: Hydrocodone/APAP 10 mg/325 mg Tab PO SCH (09:24)
[2018-01-25] MEDS: Multivitamin w/ Minerals Tab PO SCH (09:24)
[2018-01-25] MEDS: Cortisporin Otic Soln 10mL Bottle EACH EAR SCH (09:27)
--- NOTE | 2018-01-27 22:16 | Discharge Summary ---
DATE OF DISCHARGE: 01/25/2018 THE PATIENT'S AGE: 67. SEX: Male. PHYSICIAN: Dr. Montanez. FINAL DIAGNOSIS/PRIMARY DIAGNOSIS: Unspecified psychosis. SECONDARY DIAGNOSIS: Dementia, moderate to severe, with psychotic features and behavioral disturbances. REASON FOR HOSPITALIZATION: The patient was admitted to the hospital from [facility] because of increased agitation and aggressive behavior. The patient also was unable to follow any of staff directions and he was argumentative. HOSPITAL COURSE: The patient continued to be extremely irritable and agitated. The patient also needed lots of redirection. The patient also was having severe mood swings and severe anxiety. He also was restless. The patient was given Abilify in a dose of 5 mg every day. If that helps patient's agitation and irritability and the patient was calmer. Also, continue to take Namenda in a dose of 5 mg every day. Gradually, the patient's affect was brighter. The patient was less irritable and less agitated and the patient was discharged from the hospital. Physical exam of the patient showed that the patient has hypertension. The patient has no major medical problems while in the hospital. AFTER DISCHARGE PLANS: The patient discharged from the hospital and went back to [facility] with plans to continue his treatment and followup. EXPECTED OUTCOME AFTER DISCHARGE: Fair if the patient continued to take his psychotropic medications and comply with discharge plans. JOB# [id number]
== END 2018-01-25 11:45 | DRG 885 ==
LOC: GERO 00:45
PROVIDERS: ADMIT Psychiatry & Neurology Psychiatry; ATTEND Psychiatry & Neurology Psychiatry
DX: F29 Unspecified psychosis not due to a substance or known physiological condition (principal); N39.0 Urinary tract infection, site not specified; F03.91 Unspecified dementia, unspecified severity, with behavioral disturbance; N40.0 Benign prostatic hyperplasia without lower urinary tract symptoms; M19.90 Unspecified osteoarthritis, unspecified site; G89.29 Other chronic pain; M54.9 Dorsalgia, unspecified; H40.9 Unspecified glaucoma
CPT/HCPCS: 94760; Z7610